=== PATIENT | male | born 1940 | race Caucasian/White ===

== ENCOUNTER 2016-10-26 16:42 | Inpatient (IN) | payer OTHER ==
[~2016-10-26] VITALS: Ht 170.2 cm; Wt 106.2 kg
[~2016-10-26 16:42] MED LIST: BIMA2.5D EACHEYE; CARV12.52 PO; CLOP75TA PO; HYDR-2868 PO; HYDR25TA9 PO; INSU100V13 SQ; LIPITOR80 MG PO; LISI-334 PO
[2016-10-26 17:06] LABS: BASO # 0.1 x10^3/uL (0.0-0.2); BASO % 1 % (0-3); EOS % 2 % (0-3); HEMATOCRIT 47.3 % (39.0-53.0); HEMOGLOBIN 15.5 g/dL (13.0-17.5); LYMPH # 3.8 x10^3/uL (1.0-4.8); LYMPH % 28 % (24-48); MEAN CORPUSCULAR HEMOGLOBIN 26 pg (25-35); MEAN CORPUSCULAR HGB CONC 33 g/dL (31-37); MEAN CORPUSCULAR VOLUME 81 fL (79-100); MONO % 7 % (0-9); NEUT % 62 % (31-73); PLATELET COUNT 310 x10^3/uL (140-400); RED BLOOD COUNT 5.86 x10^6/uL (4.30-5.70); RED CELL DISTRIBUTION WIDTH 15.4 % (11.5-14.5); WHITE BLOOD COUNT 13.6 x10^3/uL (4.0-11.0)
[2016-10-26 17:16] LABS: PROTHROMBIN TIME PATIENT 12.5 SEC (11.7-14.0)
[2016-10-26 17:17] LABS: CALCIUM 9.6 mg/dL (8.5-10.1); GFR 72.6
--- NOTE | 2016-10-26 17:41 | RAD ---
PROCEDURE Head CT without contrast. HISTORY Right-sided weakness. Slurred speech. TECHNIQUE Computed tomographic images of the head were obtained without contrast. COMPARISON 10/14/2015 FINDINGS There is no acute hemorrhage. There is no mass effect or midline shift. There is mild to moderate ventricular enlargement, likely due to cerebral atrophy. There are scattered areas of hypodensity within the cerebral white matter, likely due to chronic small vessel disease. There are small left maxillary sinus mucous retention cysts. The orbits are unremarkable. The mastoid air cells are clear. There is no calvarial lesion. IMPRESSION 1. No acute intracranial finding. Note is made that MRI is more sensitive for acute infarction. 2. Scattered areas of hypodensity within the cerebral white matter, a nonspecific finding likely due to chronic small vessel disease. 3. Mild to moderate ventricular enlargement, appropriate for the degree of cerebral atrophy. This is not clearly greater than expected for cerebral volume to suggest normal pressure hydrocephalus. Electronically signed by: Danelle Aragon (Oct 26, 2016 17:39:57)
--- NOTE | 2016-10-26 17:55 | PHYS DOC ---
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 Daughter is primary immigration judge and lives with him. Noted he was not quite himself this morning around 0700, but did not have specific complaint; he did not eat breakfast per usual. At lunch around 1100, he seemed weaker on the right side than usual and needed more help than usual; he also did not eat well at lunch. She then slept this afternoon and woke around 1600, noting facial droop, slurred speech and worsening right sided weakness than usual. He has no complaints. He denies headache, vision changes, numbness, tingling, focal weakness, chest pain, dyspnea, palpations, abdominal pain, nausea or vomiting, fever or chills, dysuria, diarrhea. He denies difficulty breathing or swallowing. Review of Systems Review of Systems Constitutional: Denies fever or chills [] Eyes: Denies change in visual acuity, redness, or eye pain [] HENT: Denies nasal congestion or sore throat [] Respiratory: Denies cough or shortness of breath [] Cardiovascular: No additional information not addressed in HPI [] GI: Denies abdominal pain, nausea, vomiting, bloody stools or diarrhea [] : Denies dysuria or hematuria [] Musculoskeletal: Denies back pain or joint pain [] Integument: Denies rash or skin lesions [] Neurologic: Denies headache, focal weakness or sensory changes [] Endocrine: Denies polyuria or polydipsia [] Allergies Allergies Allergies Coded Allergies Type Severity Reaction Last Updated Verified Lbfxwjl-Ntj-Zlc Reductase Inhibitor Allergy Intermediate Hives 04/28/16 Yes Physical Exam Physical Exam Constitutional: Well developed, well nourished, no acute distress, non-toxic appearance. [] HENT: Normocephalic, atraumatic, bilateral external ears normal, oropharynx moist, no oral exudates, nose normal. [] Eyes: PERRLA, EOMI. [] Neck: Normal range of motion, supple, no stridor. [] Cardiovascular:Heart rate regular rhythm [] Lungs & Thorax: Bilateral breath sounds clear to auscultation [] Abdomen: Bowel sounds normal, soft, no tenderness. [] Skin: Warm, dry, no erythema, no rash. [] Back: Normal range of motion. [] Extremities: No tenderness, ROM intact. [] Neurologic: Alert and oriented to self and situation, normal motor function, normal sensory function, has right upper and lower extremity drift, has 5-/5 strength in right upper and lower extremity compared to left, has right facial droop however other cranial nerves are intact, no nystagmus. [] Psychologic: Affect normal, judgement normal, mood normal. [] Current Patient Data Vital Signs Vital Signs Date Time Temp Pulse Resp B/P Pulse Ox O2 Delivery O2 Flow Rate FiO2 10/26/16 17:48 71 21 167/76 Room Air 10/26/16 17:15 91 10/26/16 16:52 98.0 98.0 Lab Values Laboratory Tests Test 10/26/16 16:57 10/26/16 17:00 Glucose (Fingerstick) 127mg/dL (70-99) H White Blood Count 13.6x10^3/uL (4.0-11.0) H Red Blood Count 5.86x10^6/uL (4.30-5.70) H Hemoglobin 15.5g/dL (13.0-17.5) Hematocrit 47.3% (39.0-53.0) Mean Corpuscular Volume 81fL (79-100) Mean Corpuscular Hemoglobin 26pg (25-35) Mean Corpuscular Hemoglobin Concent 33g/dL (31-37) Red Cell Distribution Width 15.4% (11.5-14.5) H Platelet Count 310x10^3/uL (140-400) Neutrophils (%) (Auto) 62% (31-73) Lymphocytes (%) (Auto) 28% (24-48) Monocytes (%) (Auto) 7% (0-9) Eosinophils (%) (Auto) 2% (0-3) Basophils (%) (Auto) 1% (0-3) Neutrophils # (Auto) 8.4x10^3uL (1.8-7.7) H Lymphocytes # (Auto) 3.8x10^3/uL (1.0-4.8) Monocytes # (Auto) 0.9x10^3/uL (0.0-1.1) Eosinophils # (Auto) 0.3x10^3/uL (0.0-0.7) Basophils # (Auto) 0.1x10^3/uL (0.0-0.2) Prothrombin Time 12.5SEC (11.7-14.0) Prothrombin Time INR 1.0 (0.8-1.1) Sodium Level 140mmol/L (136-145) Potassium Level 4.0mmol/L (3.5-5.1) Chloride Level 101mmol/L (98-107) Carbon Dioxide Level 27mmol/L (21-32) Anion Gap 12 (6-14) Blood Urea Nitrogen 22mg/dL (8-26) Creatinine 1.0mg/dL (0.7-1.3) Estimated GFR (Cockcroft-Gault) 72.6 Glucose Level 132mg/dL (70-99) H Calcium Level 9.6mg/dL (8.5-10.1) Troponin I Quantitative 0.036ng/mL (0.000-0.055) Laboratory Tests 10/26/16 17:00 Laboratory Tests 10/26/16 17:00 EKG EKG EKG as interpreted by me as normal sinus rhythm, rate 83, no ST-T changes, normal intervals, no ectopy Radiology/Procedures Radiology/Procedures CT head without contrast IMPRESSION 1. No acute intracranial finding. Note is made that MRI is more sensitive for acute infarction. 2. Scattered areas of hypodensity within the cerebral white matter, a nonspecific finding likely due to chronic small vessel disease. 3. Mild to moderate ventricular enlargement, appropriate for the degree of cerebral atrophy. This is not clearly greater than expected for cerebral volume to suggest normal pressure hydrocephalus. Electronically signed by: Danelle Aragon (Oct 26, 2016 17:39:57) Course & Med Decision Making Course & Med Decision Making Pertinent Labs and Imaging studies reviewed. (See chart for details) NIH 7 (as documented in nursing notes). Given delayed presentation, he is not a candidate for thrombolysis. Will admit for concern of acute ischemic stroke. Discussed case with Dr. Hoyt, who will admit. Jonel Disclaimer Dragon Disclaimer This electronic medical record was generated, in whole or in part, using a voice recognition dictation system. Departure Departure Impression: Primary Impression: Right sided weakness Disposition: 09 ADMITTED INPATIENT Condition: STABLE Referrals: IMTIAZ GOMEZ MD (PCP) Cathi CISNEROS MD Oct 26, 2016 17:55
[2016-10-26] MEDS ORDERED: ONDANSETRON PF 4 MG/2 ML VIAL. IV PRN ×2 (18:00→19:02)
[2016-10-26] MEDS ORDERED: ACETAMINOPHEN 325 MG TABLET. PO PRN (18:00)
[2016-10-26] MEDS ORDERED: FENTANYL PF 100 MCG/2 ML VIAL. IV PRN (18:00)
[2016-10-26] MEDS ORDERED: ASPIRIN 325 MG TABLET PO ONE (18:00)
--- NOTE | 2016-10-26 18:43 | EKG ---
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
--- NOTE | 2016-10-26 19:00 | ACF ---
Admission Forms Criteria NEUROLOGY GRG Clinical Indications for Admission to Inpatient Care (Place ' X' for any and all applicable criteria): Hospital admission is needed for appropriate care of the patient because of 1 or more of the following: [ ]I. Encephalitis [ ]II. Severe [employer] infections indicated by 1 or more of the following(1)(2)(3) : [ ]a) Intracranial abscess [ ]b) Spinal abscess or myelitis [ ]c) Tuberculous or other nonbacterial, nonviral [employer] infection(8) [ ]III. Vasculitis and 1 or more of the following(14)(15): []a) Altered mental status that is severe or persistent or other acute neurologic change []b) Psychosis []c) Seizure [ ]IV. Status epilepticus or repetitive seizures not controlled with emergent treatment [A] (7)(8) [ ]V. Altered mental status that is severe or persistent [ ]. Transient alteration in consciousness with high-risk etiology; examples include (12)(13): [ ]a) Cardiovascular source [ ]b) Cataplexy [ ]VII. Cerebral aneurysm requiring ANY ONE of the following(14): [ ]a) IV antihypertensives or vasoactive agents [ ]b) Sedation and analgesia for suspected leak [ ]c) Need for external ventricular drainage and cerebral perfusion pressure monitoring [ ]d) Emergent evaluation to determine need for surgical clipping or endovascular coiling by interventional radiology. If surgery is required ( Also use Craniotomy, Supratentorial, for Surgery of Bleeding Intracranial Aneurysm (for bleeding aneurysm) or Craniotomy, Supratentorial (for nonbleeding aneurysm) as appropriate. [X]VIII. New-onset severe neurologic symptom requiring inpatient care indicated by ANY ONE of the following: [ ]a) Aphasia(15) [ ]b) Weakness (grade 3 or less) [ ]c) Paralysis (eg, hemiplegia) [ ]d) Spasticity(16) [ ]e) Dystonia [ ]e) Ataxia(17) [ ]f) Amnesia(18) [ ]g) Involuntary movements(19) [ ]h) Vertigo [ ] Visual loss [X]i) Other severe neurologic finding (eg, papilledema, mass effect on imaging, myoclonus not treatable at alternative level of care (eg, observation care) [ ]IX. Guillain-Richmond syndrome(20) [ ]X. Myasthenia gravis crisis or inpatient monitoring need as indicated by 1 or more of the following(21): [ ]a) Intensive treatment (eg, course of plasmapheresis) with inadequate outpatient situation to monitor patients status [ ]b) Inadequate airway protection [ ]c) Respiratory insufficiency requiring intubation or inpatient. monitoring [ ]d) Progressive dysphagia with failure to thrive [ ]XI. Multiple sclerosis or other acute demyelinating disease requiring inpatient care as indicated by 1 or more of the following (22)(23): [ ]a) Acute severe deterioration requiring inpatient treatment (eg, IV steroids, plasmapheresis, close observation) [ ]b) Acute complication requiring inpatient care (eg, sepsis, severe decubitus, aspiration) [ ]XII.Parkinson disease requiring inpatient care (Also use Optimal Recovery Care Criteria or General Recovery Criteria as appropriate) indicated by 1 or more of the following(25): [ ]a) Infection (eg, aspiration pneumonia) not treatable at alternative level of care [ ]b Dehydration that is severe or persistent [ ]c) Life-threatening agitation or psychotic behavior not treatable on emergency, observation care, or alternative level (eg, residential) basis [ ]d) Severe medication withdrawal effects (eg, freezing, neuroleptic malignant syndrome) not responsive to emergency and observation care treatment ( as appropriate) [ ]e) Other severe manifestation not treatable at alternative level of care [ ]XII. Amyotrophic lateral sclerosis with inpatient care needs as indicated by ANY ONE of the following(26): [ ]a) Acute complications (eg, aspiration pneumonia, sepsis ) requiring inpatient care ( see other optimal Recovery Guideline as appropriate) [ ]b) Dehydration that is severe persistent AND artificial support desired [ ]c) Inadequate airway protection AND artificial support desired [ ]d) Severe ventilatory insufficiency AND artificial support desired [ ]XIII. Myasthenia gravis crisis or inpatient monitoring need as indicated by 1 or more of the following(21): [] a) Inadequate airway protection []b) Respiratory insufficiency requiring intubation or inpatient monitoring []c) Progressive dysphagia with failure to thrive []d) Intensive treatment (e.g., course of plasmapheresis) with inadequate outpatient situation to monitor patients status [ ]XIV. Multiple sclerosis or other acute demyelinating disease requiring inpatient care indicated by 1 or more of the following[C](36)(43)(44)(45)(46): []a) Acute severe deterioration requiring inpatient treatment (eg, IV steroids, plasmapheresis, close observation) []b) Acute complication requiring inpatient care (eg, sepsis, severe decubitus, aspiration) [ ]XV. Intracranial hypertension (e.g., pseudotumor cerebri) requiring inpatient care (e.g., acute visual loss, inadequate oral intake) (47)(48)(49) [ ]XVI. Parkinson disease requiring inpatient care (Also use Optimal Recovery Care Criteria or General Recovery Criteria as appropriate) indicated by 1 or more of the following(25): [] a) Infection (e.g., aspiration pneumonia) not treatable at alternative level of care []b) Volume depletion not responsive to emergency and observation care treatment (as appropriate) []c) Life-threatening agitation or psychotic behavior not treatable on emergency, observation care, or alternative level (e.g., residential) basis []d) Severe medication withdrawal effects (e.g., freezing, neuroleptic malignant syndrome) not responsive to emergency and observation care treatment (as appropriate) []e) Other severe manifestation not treatable at alternative level of care [ ]XVII. Amyotrophic lateral sclerosis with inpatient care needs as indicated by1 or more of the following(42): []a) Acute complications (eg, aspiration pneumonia, sepsis) requiring inpatient care (see other Optimal Recovery Guideline or General Recovery Guideline as appropriate) []b) Dehydration that is severe or persistent AND artificial support desired []c) Inadequate airway protection AND artificial support desired []d) Severe ventilatory insufficiency AND artificial support desired [ ]XVIII. Severe myopathy, neuropathy, or other neuromuscular disease indicated by 1 or more of the following(42)(52)(53)(54): []a ) New-onset severe diffuse weakness (eg, strength 3/5 or less) []b) Severe dysphagia []c) Dyspnea at rest or with minimal exertion (new) []d) Inadequate airway protection []e) Inadequate ventilation indicated by 1 or more of the following : i) Partial pressure of carbon dioxide greater than 44 mm Hg ( 5.9 kPa) (new) ii) Reduced peak expiratory flow rate (new) iii) Vital capacity less than 50% of predicted (less than 15 mL/kg) iv) Peak inspiratory force less negative than -30 cm H2O (- 2942 Pa) [ ]XVII.Complications of congenital or degenerative disease (eg, infection, seizures, dehydration, injury) not responsive to emergency and observation care treatment (as appropriate ) [C](16)(29)(30) [ ]XVIII.Suspected or confirmed nerve or muscle toxic injury, including ANY ONE of the following: [ ]a) Rhabdomyolysis(31) i) Acute renal failure ii) Dehydration that is severe or persistent iii) Altered mental status that is severe or persistent iv) Electrolyte abnormality that remains after emergency or observation level care ( as appropriate) [ ]b) Botulism(32) [ ]c) Other severe toxin-induced sign or symptom [ ]XIX. Neurologic trauma requiring inpatient treatment (medical) indicated by ANY ONE of the following(33)(34): [ ]a) Vital signs or neurologic signs more frequently than every 4 hours [ ]b) Hyperosmolar therapy [ ]c) Respiratory monitoring [ ]d) Intracranial pressure monitoring and treatment [ ]e) Stabilization and immobilization device placement (eg, braces, body jacket) [ ]f) Intubation & mechanical ventilation for airway protection or therapeutic hyperventilation [ ]g) Other treatment or monitoring needed that requires inpatient level of care [ ]XX.Complications of neurologic devices (eg, ventricular shunt, neurostimulator) requiring 1 or more of the following(35)(36): [ ]a) IV antibiotics with monitoring while awaiting culture results [ ]b) Monitoring for hydrocephalus [ ]XXI. Neurology condition symptom, or finding for which emergency and observation care have failed or are not considered appropriate. See General Criteria: Observation Care ISC, General Admission Criteria GRG, or Pediatric General Admission Criteria GRG guideline as appropriate. The original [facility] content created by [facility] has been revised. The portions of the content which have been revised are identified through the use of italic text or in bold, and [facility] has neither reviewed nor approved the modified material. All other unmodified content is copyright [facility] Please see references footnoted in the original [facility] edition 2016 Admission Criteria Met?: Yes KELLEN ROSS Oct 26, 2016 19:00
--- NOTE | 2016-10-26 19:12 | PDOC1 ---
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 (RUE weaker than RLE). By 4pm, slurred speech and facial asymmetry, He does have hx of CVA with R sided residual deficit but these acute events were worse than his baseline. Maintained on plavix, Also hx HTN, BP tends to run high, dtr mentions hx malignant HTN, on a couple of antihypertensives at home (See mAR). BP running 140s-160s at ER,. Slurred speech, shallow R NLF, weak RUE (usually able to lift above head but not today), USes assistive device, wheelchair at home. Got ASA at ER, CT head neg Past Medical History Cardiovascular: HTN CENTRAL NERVOUS SYSTEM: CVA Heme/Onc: Cancer Endocrine: Diabetes Past Surgical History Past Surgical History: Appendectomy Family History Family History: Cancer, Heart Disease Social History Smoke: No ALCOHOL: none Drugs: None Current Problem List Problem List Problems Medical Problems: (1) Right sided weakness Status: Acute Problems: Current Medications Current Medications Current Medications Ondansetron HCl (Zofran) 4 mg PRN Q8HRS PRN IV NAUSEA/VOMITING; Start 10/26/16 at 18:00; Stop 10/27/16 at 17:59 Fentanyl Citrate (Fentanyl 2ml Vial) 50 mcg PRN Q2HR PRN IV PAIN; Start at 18:00; Stop 10/27/16 at 17:59 Acetaminophen (Tylenol) 650 mg PRN Q4HRS PRN PO FEVER; Start 10/26/16 at 18:00 ; Stop 10/27/16 at 17:59 Aspirin (Smitha Aspirin) 325 mg 1X ONCE PO ; Start 10/26/16 at 18:00; Stop 10/26 at 18:02; Status DC Active Scripts Active Reported Lumigan (Bimatoprost) 2.5 Ml Drops 1 Drop EACHEYE QHS Levemir (Insulin Detemir) 100 Unit/1 Ml Vial 1 Unit SQ Lipitor (Atorvastatin Calcium) 80 Mg Tablet 100 Mg PO HS Hydralazine Hcl 25 Mg Tablet 1 Tab PO TID Lisinopril 20 Mg Tablet 1 Tab PO DAILY Clopidogrel (Clopidogrel Bisulfate) 75 Mg Tablet 1 Tab PO DAILY Hydrochlorothiazide Tablet (Hydrochlorothiazide) 25 Mg Tablet 1 Tab PO DAILY Carvedilol 12.5 Mg Tablet 1 Tab PO BID Allergies Allergies: Coded Allergies: Hqdnmoo-Inl-Bhy Reductase Inhibitor (Verified Allergy, Intermediate, Hives , 04/28/16) ROS Review of System per HPI, all else is neg 14 pt systems reviewed General: No: Appetite, Chills, Fatigue, Malaise, Night Sweats, Other PSYCHOLOGICAL ROS: No: Anxiety, Behavioral Disorder, Concentration difficultie , Decreased libido, Depression, Disorientation, Hallucinations, Hostility, Irritablity, Memory difficulties, Mood Swings, Obsessive thoughts, Other, Physical abuse, Sexual abuse, Sleep disturbances, Suicidal ideation Eyes: No Blurry vision, No Decreased vision, No Double vision, No Dry eyes, No Excessive tearing, No Eye Pain, No Itchy Eyes, No Loss of vision, No Other, No Photophobia, No Scotomata, No Uses contacts, No Uses glasses HEENT: No: Epistaxis, Heacaches, Hearing change, Nasal congestion, Nasal discharge, Oral lesions, Other, Sinus pain, Sneezing, Snoring, Sore Throat, Tinnitus, Vertigo, Visual Changes, Vocal changes ALLERGY AND IMMUNOLOGY: No: Hives, Insect Bite Sensitivity, Itchy/Watery Eyes, Nasal Congestion, Other, Post Nasal Drip, Seasonal Allergies Hematological and Lymphatic: No: Bleeding Problems, Blood Clots, Blood Transfusions, Brusing, Night Sweats, Other, Pallor, Swollen Lymph Nodes ENDOCRINE: No: Breast Changes, Galactorrhea, Hair Pattern Changes, Hot Flashes , Malaise/lethargy, Mood Swings, Other, Palpitations, Polydipsia/polyuria, Skin Changes, Temperature Intolerance, Unexpected Weight Changes Breast: No New/Changing Breast Lumps, No Nipple changes, No Nipple discharge, No Other Respiratory: No: Cough, Hemoptysis, Orthopnea, Other, Pleuritic Pain, SOB with excertion, Shortness of breath, Sputum Changes, Stridor, Tachypnea, Wheezing Cardiovascular: No Chest Pain, No Edema, No Lt Headedness, No Orthopnea, No Other, No Palpitations, No Paroxysmal Noc. Dyspnea Gastrointestinal: No Abdominal Pain, No Constipation, No Diarrhea, No Hematochezia, No Melena, No Nausea, No Other, No Vomiting Genitourinary: No , No , No , No , No , No , No , No Discharge, No Dysuria, No Flank Pain, No Frequency, No Hematuria, No Incontinence, No Other, No Pain, No Retention, No Urgency Musculoskeletal: No Gait Disturbance, No Joint Pain, No Joint Stiffness, No Joint Swelling, No Muscle Pain, No Muscular Weakness, No Other, No Pain In:, No Swelling In: Neurological: Yes Other (per HPI) Skin: No Acne, No Dry Skin, No Eczema, No Hair Changes, No Lumps, No Mole Changes, No Mottling, No Nail Changes, No Other, No Pruritus, No Rash, No Skin Lesion Changes Vitals Vitals Vital Signs Date Time Temp Pulse Resp B/P Pulse Ox O2 Delivery O2 Flow Rate FiO2 10/26/16 16:52 98.0 87 18 165/115 95 Room Air 98.0 Labs Labs Laboratory Tests Test 10/26/16 16:57 10/26/16 17:00 Glucose (Fingerstick) 127mg/dL (70-99) White Blood Count 13.6x10^3/uL (4.0-11.0) Red Blood Count 5.86x10^6/uL (4.30-5.70) Hemoglobin 15.5g/dL (13.0-17.5) Hematocrit 47.3% (39.0-53.0) Mean Corpuscular Volume 81fL (79-100) Mean Corpuscular Hemoglobin 26pg (25-35) Mean Corpuscular Hemoglobin Concent 33g/dL (31-37) Red Cell Distribution Width 15.4% (11.5-14.5) Platelet Count 310x10^3/uL (140-400) Neutrophils (%) (Auto) 62% (31-73) Lymphocytes (%) (Auto) 28% (24-48) Monocytes (%) (Auto) 7% (0-9) Eosinophils (%) (Auto) 2% (0-3) Basophils (%) (Auto) 1% (0-3) Neutrophils # (Auto) 8.4x10^3uL (1.8-7.7) Lymphocytes # (Auto) 3.8x10^3/uL (1.0-4.8) Monocytes # (Auto) 0.9x10^3/uL (0.0-1.1) Eosinophils # (Auto) 0.3x10^3/uL (0.0-0.7) Basophils # (Auto) 0.1x10^3/uL (0.0-0.2) Prothrombin Time 12.5SEC (11.7-14.0) Prothromb Time International Ratio 1.0 (0.8-1.1) Sodium Level 140mmol/L (136-145) Potassium Level 4.0mmol/L (3.5-5.1) Chloride Level 101mmol/L (98-107) Carbon Dioxide Level 27mmol/L (21-32) Anion Gap 12 (6-14) Blood Urea Nitrogen 22mg/dL (8-26) Creatinine 1.0mg/dL (0.7-1.3) Estimated GFR (Cockcroft-Gault) 72.6 Glucose Level 132mg/dL (70-99) Calcium Level 9.6mg/dL (8.5-10.1) Troponin I Quantitative 0.036ng/mL (0.000-0.055) Laboratory Tests Test 10/26/16 16:57 10/26/16 17:00 Glucose (Fingerstick) 127mg/dL (70-99) White Blood Count 13.6x10^3/uL (4.0-11.0) Red Blood Count 5.86x10^6/uL (4.30-5.70) Hemoglobin 15.5g/dL (13.0-17.5) Hematocrit 47.3% (39.0-53.0) Mean Corpuscular Volume 81fL (79-100) Mean Corpuscular Hemoglobin 26pg (25-35) Mean Corpuscular Hemoglobin Concent 33g/dL (31-37) Red Cell Distribution Width 15.4% (11.5-14.5) Platelet Count 310x10^3/uL (140-400) Neutrophils (%) (Auto) 62% (31-73) Lymphocytes (%) (Auto) 28% (24-48) Monocytes (%) (Auto) 7% (0-9) Eosinophils (%) (Auto) 2% (0-3) Basophils (%) (Auto) 1% (0-3) Neutrophils # (Auto) 8.4x10^3uL (1.8-7.7) Lymphocytes # (Auto) 3.8x10^3/uL (1.0-4.8) Monocytes # (Auto) 0.9x10^3/uL (0.0-1.1) Eosinophils # (Auto) 0.3x10^3/uL (0.0-0.7) Basophils # (Auto) 0.1x10^3/uL (0.0-0.2) Prothrombin Time 12.5SEC (11.7-14.0) Prothromb Time International Ratio 1.0 (0.8-1.1) Sodium Level 140mmol/L (136-145) Potassium Level 4.0mmol/L (3.5-5.1) Chloride Level 101mmol/L (98-107) Carbon Dioxide Level 27mmol/L (21-32) Anion Gap 12 (6-14) Blood Urea Nitrogen 22mg/dL (8-26) Creatinine 1.0mg/dL (0.7-1.3) Estimated GFR (Cockcroft-Gault) 72.6 Glucose Level 132mg/dL (70-99) Calcium Level 9.6mg/dL (8.5-10.1) Troponin I Quantitative 0.036ng/mL (0.000-0.055) VTE Prophylaxis Ordered VTE Prophylaxis Devices: No VTE Pharmacological Prophylaxi: Yes Assessment/Plan Assessment/Plan 1. Shallow R NLF, weak RUE > RLE, r/o Acute ischemic stroke, JIMMY to MCA territory 2. MAlignant HTN POA, resolved 3. DM 2 on OHA 4. HTN on BB 5. Obesity/overweight 6. 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
[2016-10-26] MEDS ORDERED: DEXTROSE 50% 25 GM / 50ML DISP.SYRIN. IV PRN (19:15)
[2016-10-26] MEDS ORDERED: IV 1/2 NORMAL SALINE 1,000 ML IV ONE (19:15)
[2016-10-26 19:45] VITALS: BP 158/83
[2016-10-26] MEDS: CARVEDILOL 12.5 MG TABLET. PO SCH (20:00)
[2016-10-26] MEDS ORDERED: POTA10TA10 PO (20:01)
[2016-10-26] MEDS ORDERED: METF500T4 PO (20:01)
[2016-10-26] MEDS ORDERED: FURO20TA3 PO (20:01)
[2016-10-26] MEDS ORDERED: NICOTINE 21MG PATCH. TD PRN (20:15)
[2016-10-26] MEDS: LATANOPROST 0.005% OPHTH SOLUTION 2.5ML BOTTLE. OU SCH (20:52)
[2016-10-26] MEDS: HYDRALAZINE 25 MG TABLET PO SCH (21:00)
[2016-10-26 23:25] VITALS: BP 155/86
[2016-10-27 03:10] VITALS: BP 148/77
[2016-10-27 07:00] VITALS: BP 151/85
[2016-10-27 07:58] LABS: CHOLESTEROL/HDL RATIO 5.7
[2016-10-27] MEDS: INSULIN ASPART 300 UNITS/3 ML INSULN.PEN SQ SCH ×3 (08:00→17:00)
[2016-10-27] MEDS: CARVEDILOL 12.5 MG TABLET. PO SCH ×2 (08:00→17:00)
[2016-10-27] MEDS: CLOPIDOGREL BISULFATE 75 MG TABLET PO SCH (08:00)
[2016-10-27] MEDS: LISINOPRIL 20 MG TABLET PO SCH (09:00)
[2016-10-27] MEDS: HYDRALAZINE 25 MG TABLET PO SCH ×3 (09:00→21:00)
[2016-10-27] MEDS ORDERED: GUAIFENESIN/CODEINE 100mg/10mg 5 ML LIQUID. PO PRN (09:00)
[2016-10-27] MEDS: HYDROCHLOROTHIAZIDE 25 MG TABLET PO SCH (09:00)
--- NOTE | 2016-10-27 09:04 | PDOC ---
PROGRESS NOTES Chief Complaint Chief Complaint 1. Shallow R NLF, weak RUE > RLE, r/o Acute ischemic stroke, JIMMY to MCA territory 2. MAlignant HTN POA, resolved 3. DM 2 on OHA 4. HTN on BB 5. Obesity/overweight 6. Intolerance to statin 7. FAcial asymmetry 8. NAsal congestion/viral uri sxs History of Present Illness History of Present Illness Still slurred SHallow R NLFClaims feels fine Saliva drooling on left side PT has not worked with yet ASSOCIATE RESEARCH SCIENTIST has not seen yet NPO GEntle iVF running - hx CHF on lasix WHeezy, denies COPD, or smoking CLaims has been feeling congested lately PLAN: Await ASSOCIATE RESEARCH SCIENTIST, pT, OT, Neuro Start H2 antag once passes swallow Nebs QID Most likely will need rehab MRI brain ordered not yet done Vitals Vitals Vital Signs Date Time Temp Pulse Resp B/P Pulse Ox O2 Delivery O2 Flow Rate FiO2 10/27/16 07:00 97.6 68 18 151/85 96 Room Air 97.6 Physical Exam General: Alert, Oriented X3, Cooperative, No acute distress Heart: Regular rate Lungs: Clear, Wheezing Abdomen: Normal bowel sounds, No tenderness, No hepatosplenomegaly Extremities: No clubbing, No cyanosis, No edema Skin: No rashes, No breakdown Labs LABS Laboratory Tests Test 10/26/16 16:57 10/26/16 17:00 10/26/16 20:52 10/27/16 06:35 Glucose (Fingerstick) 127mg/dL (70-99) 139mg/dL (70-99) White Blood Count 13.6x10^3/uL (4.0-11.0) Red Blood Count 5.86x10^6/uL (4.30-5.70) Hemoglobin 15.5g/dL (13.0-17.5) Hematocrit 47.3% (39.0-53.0) Mean Corpuscular Volume 81fL (79-100) Mean Corpuscular Hemoglobin 26pg (25-35) Mean Corpuscular Hemoglobin Concent 33g/dL (31-37) Red Cell Distribution Width 15.4% (11.5-14.5) Platelet Count 310x10^3/uL (140-400) Neutrophils (%) (Auto) 62% (31-73) Lymphocytes (%) (Auto) 28% (24-48) Monocytes (%) (Auto) 7% (0-9) Eosinophils (%) (Auto) 2% (0-3) Basophils (%) (Auto) 1% (0-3) Neutrophils # (Auto) 8.4x10^3uL (1.8-7.7) Lymphocytes # (Auto) 3.8x10^3/uL (1.0-4.8) Monocytes # (Auto) 0.9x10^3/uL (0.0-1.1) Eosinophils # (Auto) 0.3x10^3/uL (0.0-0.7) Basophils # (Auto) 0.1x10^3/uL (0.0-0.2) Prothrombin Time 12.5SEC (11.7-14.0) Prothromb Time International Ratio 1.0 (0.8-1.1) Sodium Level 140mmol/L (136-145) Potassium Level 4.0mmol/L (3.5-5.1) Chloride Level 101mmol/L (98-107) Carbon Dioxide Level 27mmol/L (21-32) Anion Gap 12 (6-14) Blood Urea Nitrogen 22mg/dL (8-26) Creatinine 1.0mg/dL (0.7-1.3) Estimated GFR (Cockcroft-Gault) 72.6 Glucose Level 132mg/dL (70-99) Calcium Level 9.6mg/dL (8.5-10.1) Troponin I Quantitative 0.036ng/mL (0.000-0.055) Triglycerides Level 184mg/dL (0-150) Cholesterol Level 176mg/dL (0-200) LDL Cholesterol, Calculated 108mg/dL (0-100) VLDL Cholesterol, Calculated 37mg/dL (0-40) HDL Cholesterol 31mg/dL (40-60) Cholesterol/HDL Ratio 5.7 Test 10/27/16 07:28 Glucose (Fingerstick) 121mg/dL (70-99) Assessment and Plan Assessmemt and Plan MRI Neuro PT/OT ASSOCIATE RESEARCH SCIENTIST NPO for now IVf slow (hx CHF on lasix - dtr concerned of fluid overload) Resume plavix Check hgba1c and lipids SSI high dose Resume BB, Nima inhib and diuretic I did held off on statin given intolerance to its side effects as relayed by dtr Problems Medical Problems: (1) Right sided weakness Status: Acute Problems: Comment Review of Relevant I have reviewed the following items trena (where applicable) has been applied. Labs Laboratory Tests Test 10/26/16 16:57 10/26/16 17:00 10/26/16 20:52 10/27/16 06:35 Glucose (Fingerstick) 127mg/dL (70-99) 139mg/dL (70-99) White Blood Count 13.6x10^3/uL (4.0-11.0) Red Blood Count 5.86x10^6/uL (4.30-5.70) Hemoglobin 15.5g/dL (13.0-17.5) Hematocrit 47.3% (39.0-53.0) Mean Corpuscular Volume 81fL (79-100) Mean Corpuscular Hemoglobin 26pg (25-35) Mean Corpuscular Hemoglobin Concent 33g/dL (31-37) Red Cell Distribution Width 15.4% (11.5-14.5) Platelet Count 310x10^3/uL (140-400) Neutrophils (%) (Auto) 62% (31-73) Lymphocytes (%) (Auto) 28% (24-48) Monocytes (%) (Auto) 7% (0-9) Eosinophils (%) (Auto) 2% (0-3) Basophils (%) (Auto) 1% (0-3) Neutrophils # (Auto) 8.4x10^3uL (1.8-7.7) Lymphocytes # (Auto) 3.8x10^3/uL (1.0-4.8) Monocytes # (Auto) 0.9x10^3/uL (0.0-1.1) Eosinophils # (Auto) 0.3x10^3/uL (0.0-0.7) Basophils # (Auto) 0.1x10^3/uL (0.0-0.2) Prothrombin Time 12.5SEC (11.7-14.0) Prothromb Time International Ratio 1.0 (0.8-1.1) Sodium Level 140mmol/L (136-145) Potassium Level 4.0mmol/L (3.5-5.1) Chloride Level 101mmol/L (98-107) Carbon Dioxide Level 27mmol/L (21-32) Anion Gap 12 (6-14) Blood Urea Nitrogen 22mg/dL (8-26) Creatinine 1.0mg/dL (0.7-1.3) Estimated GFR (Cockcroft-Gault) 72.6 Glucose Level 132mg/dL (70-99) Calcium Level 9.6mg/dL (8.5-10.1) Troponin I Quantitative 0.036ng/mL (0.000-0.055) Triglycerides Level 184mg/dL (0-150) Cholesterol Level 176mg/dL (0-200) LDL Cholesterol, Calculated 108mg/dL (0-100) VLDL Cholesterol, Calculated 37mg/dL (0-40) HDL Cholesterol 31mg/dL (40-60) Cholesterol/HDL Ratio 5.7 Test 10/27/16 07:28 Glucose (Fingerstick) 121mg/dL (70-99) Laboratory Tests Test 10/26/16 16:57 10/26/16 17:00 10/26/16 20:52 10/27/16 06:35 Glucose (Fingerstick) 127mg/dL (70-99) 139mg/dL (70-99) White Blood Count 13.6x10^3/uL (4.0-11.0) Red Blood Count 5.86x10^6/uL (4.30-5.70) Hemoglobin 15.5g/dL (13.0-17.5) Hematocrit 47.3% (39.0-53.0) Mean Corpuscular Volume 81fL (79-100) Mean Corpuscular Hemoglobin 26pg (25-35) Mean Corpuscular Hemoglobin Concent 33g/dL (31-37) Red Cell Distribution Width 15.4% (11.5-14.5) Platelet Count 310x10^3/uL (140-400) Neutrophils (%) (Auto) 62% (31-73) Lymphocytes (%) (Auto) 28% (24-48) Monocytes (%) (Auto) 7% (0-9) Eosinophils (%) (Auto) 2% (0-3) Basophils (%) (Auto) 1% (0-3) Neutrophils # (Auto) 8.4x10^3uL (1.8-7.7) Lymphocytes # (Auto) 3.8x10^3/uL (1.0-4.8) Monocytes # (Auto) 0.9x10^3/uL (0.0-1.1) Eosinophils # (Auto) 0.3x10^3/uL (0.0-0.7) Basophils # (Auto) 0.1x10^3/uL (0.0-0.2) Prothrombin Time 12.5SEC (11.7-14.0) Prothromb Time International Ratio 1.0 (0.8-1.1) Sodium Level 140mmol/L (136-145) Potassium Level 4.0mmol/L (3.5-5.1) Chloride Level 101mmol/L (98-107) Carbon Dioxide Level 27mmol/L (21-32) Anion Gap 12 (6-14) Blood Urea Nitrogen 22mg/dL (8-26) Creatinine 1.0mg/dL (0.7-1.3) Estimated GFR (Cockcroft-Gault) 72.6 Glucose Level 132mg/dL (70-99) Calcium Level 9.6mg/dL (8.5-10.1) Troponin I Quantitative 0.036ng/mL (0.000-0.055) Triglycerides Level 184mg/dL (0-150) Cholesterol Level 176mg/dL (0-200) LDL Cholesterol, Calculated 108mg/dL (0-100) VLDL Cholesterol, Calculated 37mg/dL (0-40) HDL Cholesterol 31mg/dL (40-60) Cholesterol/HDL Ratio 5.7 Test 10/27/16 07:28 Glucose (Fingerstick) 121mg/dL (70-99) Medications Current Medications Ondansetron HCl (Zofran) 4 mg PRN Q8HRS PRN IV NAUSEA/VOMITING; Start 10/26/16 at 18:00; Stop 10/26/16 at 19:04; Status DC Fentanyl Citrate (Fentanyl 2ml Vial) 50 mcg PRN Q2HR PRN IV PAIN; Start at 18:00; Stop 10/27/16 at 17:59 Acetaminophen (Tylenol) 650 mg PRN Q4HRS PRN PO FEVER; Start 10/26/16 at 18:00 ; Stop 10/27/16 at 17:59 Aspirin (Smitha Aspirin) 325 mg 1X ONCE PO ; Start 10/26/16 at 18:00; Stop 10/26 at 18:02; Status DC Ondansetron HCl 4 mg 4 mg PRN Q6HRS PRN IV NAUSEA/VOMITING; Start 10/26/16 at 19:02 Sodium Chloride (Iv Sodium Chloride 0.45%) 1,000 ml @ 75 mls/hr 1X ONCE IV Last administered on 10/26/16 20:44; Start 10/26/16 at 19:15; Stop 10/27/16 at 08:34; Status DC Carvedilol (Coreg) 12.5 mg BIDWMEALS PO ; Start 10/26/16 at 20:00 Clopidogrel Bisulfate (Plavix) 75 mg DAILYWBKFT PO ; Start 10/27/16 at 08:00 Hydralazine HCl (Apresoline) 25 mg TID PO ; Start 10/26/16 at 21:00 Hydrochlorothiazide (Hydrodiuril) 25 mg DAILY PO ; Start 10/27/16 at 09:00 Lisinopril (Prinivil) 20 mg DAILY PO ; Start 10/27/16 at 09:00 Latanoprost (Xalatan) 1 drop QHS OU Last administered on 10/26/16 20:52; Start 10/26/16 at 21:00 Insulin Aspart (Novolog) 0-9 UNITS TIDWMEALS SQ ; Start 10/27/16 at 08:00 Dextrose (Dextrose 50%-Water Syringe) 12.5 gm PRN Q15MIN PRN IV SEE COMMENTS; Start 10/26/16 at 19:15 Nicotine (Nicoderm Cq 21mg) 1 patch PRN DAILY PRN TD SMOKING CESSATION Last administered on 10/26/16 20:45; Start 10/26/16 at 20:15 Active Scripts Active Reported Potassium Chloride 10 Meq Tablet.er 20 Meq PO DAILY Metformin Hcl 500 Mg Tablet 500 Mg PO BIDWMEALS Furosemide 20 Mg Tablet 20 Mg PO DAILY Lumigan (Bimatoprost) 2.5 Ml Drops 1 Drop EACHEYE QHS Levemir (Insulin Detemir) 100 Unit/1 Ml Vial 1 Unit SQ Lipitor (Atorvastatin Calcium) 80 Mg Tablet 100 Mg PO HS Hydralazine Hcl 25 Mg Tablet 1 Tab PO TID Lisinopril 20 Mg Tablet 1 Tab PO DAILY Clopidogrel (Clopidogrel Bisulfate) 75 Mg Tablet 1 Tab PO DAILY Hydrochlorothiazide Tablet (Hydrochlorothiazide) 25 Mg Tablet 1 Tab PO DAILY Carvedilol 12.5 Mg Tablet 1 Tab PO BID Vitals/I & O Vital Sign - Last 24 Hours 10/26/16 10/26/16 10/26/16 10/26/16 16:52 17:15 17:33 17:48 Temp 98.0 98.0 Pulse 87 78 75 71 Resp 18 21 B/P 165/115 199/91 181/84 167/76 Pulse Ox 95 91 O2 Delivery Room Air Room Air Room Air 10/26/16 10/26/16 10/26/16 10/26/16 18:03 18:18 18:33 18:48 Pulse 76 72 73 72 Resp B/P 164/72 165/80 164/86 163/83 Pulse Ox 91 92 91 93 O2 Delivery Room Air Room Air Room Air Room Air 10/26/16 10/26/16 10/26/16 10/26/16 19:03 19:45 20:00 23:25 Temp 97.7 98.2 97.7 98.2 Pulse 74 73 73 Resp 24 B/P 169/83 158/83 155/86 Pulse Ox 93 94 91 O2 Delivery Room Air Room Air Room Air Room Air 10/27/16 10/27/16 03:10 07:00 Temp 97.5 97.6 97.5 97.6 Pulse 68 68 Resp 18 B/P 148/77 151/85 Pulse Ox 94 96 O2 Delivery Room Air Room Air Intake and Output 10/26/16 10/26/16 10/27/16 15:00 23:00 07:00 Intake Total 0 ml Output Total 600 ml Balance -600 ml KATELYN BOSS MD Oct 27, 2016 09:04
[2016-10-27] MEDS ORDERED: ACETAMINOPHEN 325 MG TABLET. PO PRN (09:15)
[2016-10-27] MEDS ORDERED: ONDANSETRON PF 4 MG/2 ML VIAL. IV PRN (09:15)
[2016-10-27] MEDS ORDERED: ACETAMINOPHEN 650 MG SUPP.RECT. PR PRN (09:15)
[2016-10-27] MEDS: ASPIRIN 300 MG SUPP.RECT PR SCH ×2 (09:15→11:57)
[2016-10-27] MEDS: CETIRIZINE HCL 10 MG TABLET. PO SCH (10:00)
[2016-10-27 11:00] VITALS: BP 158/74
--- NOTE | 2016-10-27 11:33 | RAD ---
Carotid ultrasound, 10/27/2016: History: Stroke Duplex evaluation of the carotid arteries in the neck was performed including grayscale, color-flow and spectral Doppler analysis. There is moderate atherosclerotic plaquing at the carotid bifurcations including the distal right common carotid artery. There is a mild velocity acceleration in the distal right common carotid artery in an area of smooth plaquing. The peak systolic velocity is 157 cm/s. The end-diastolic velocity is 20 cm/s. Correlation with the color images suggests approximately 50% diameter narrowing. The peak systolic velocity in the right internal carotid artery is 118 cm/s with an end-diastolic velocity of 24 cm/s. There is no duplex evidence of high-grade stenosis at the right carotid bifurcation. On the left, there is a moderate velocity acceleration in in the proximal internal carotid artery up to 191 cm/s. The end-diastolic velocity is 44 cm/s. The internal carotid to common carotid artery ratio is 2.1. The Doppler findings suggest narrowing in the 50-70% diameter range. Antegrade flow is present in both vertebral arteries in the neck. IMPRESSION: 1. Moderate atherosclerotic plaquing at the left carotid bifurcation with narrowing of the proximal internal carotid artery in the 50-70% diameter range. 2. Approximately 50% narrowing of the distal right common carotid artery due to smooth plaquing. 3. Mild to moderate atherosclerotic plaquing at the right carotid bifurcation with luminal narrowing in the 0-50% diameter range. Note: Stenosis calculations for CT, MRA and conventional angiography are based upon determination of the distal ICA diameter in accordance with the NASCET methodology. Stenosis calculations for Doppler studies are derived from validated velocity criteria which are known to correlate with NASCET methodology of determining stenosis.
[2016-10-27] MEDS: IV 1/2 NORMAL SALINE 1,000 ML IV SCH (11:55)
--- NOTE | 2016-10-27 11:55 | PDOC2 ---
NEUROLOGY CONSULT Date of Admission Date of Admission DATE: 10/27/16 TIME: 11:46 Reason for Consult Reason for Consult: Stroke Referring Physician Referring Physician: Dr. Hoyt PCP: Dr. Barcenas Source Source: Caregiver, Chart review, Patient History of Present Illness History of Present Illness The patient is a 76-year-old right-handed male with history of stroke causing right hemiparesis. At baseline his family has to get him out of bed but he does feed himself despite the residual right hemiparesis. His daughter is a nurse who works the radiation control specialist. She noticed that he had a bit of weakness yesterday about 11 AM and when she woke up from a nap at 4 PM, his weakness was worse and he was having more dysarthria. He was brought into the emergency department. I was not contacted, but the decision was made not to give tissue plasminogen activator, I gather, because of the more than 4 1/2 hours since last known normal. The patient denies the headache, diplopia, or vision loss. Past Medical History Cardiovascular: HTN CENTRAL NERVOUS SYSTEM: CVA Renal/: Prostate Ca. Endocrine: Diabetes Past Surgical History Past Surgical History: Appendectomy Family History Family History: No pertinent hx Social History Social History , lives with daughter and son-in-law, no alcohol or tobacco Current Medications Current Medications Current Medications Ondansetron HCl (Zofran) 4 mg PRN Q8HRS PRN IV NAUSEA/VOMITING; Start 10/26/16 at 18:00; Stop 10/26/16 at 19:04; Status DC Fentanyl Citrate (Fentanyl 2ml Vial) 50 mcg PRN Q2HR PRN IV PAIN; Start at 18:00; Stop 10/27/16 at 17:59 Acetaminophen (Tylenol) 650 mg PRN Q4HRS PRN PO FEVER; Start 10/26/16 at 18:00 ; Stop 10/27/16 at 17:59 Aspirin (Smitha Aspirin) 325 mg 1X ONCE PO ; Start 10/26/16 at 18:00; Stop 10/26 at 18:02; Status DC Ondansetron HCl 4 mg 4 mg PRN Q6HRS PRN IV NAUSEA/VOMITING; Start 10/26/16 at 19:02 Sodium Chloride (Iv Sodium Chloride 0.45%) 1,000 ml @ 75 mls/hr 1X ONCE IV Last administered on 10/26/16 20:44; Start 10/26/16 at 19:15; Stop 10/27/16 at 08:34; Status DC Carvedilol (Coreg) 12.5 mg BIDWMEALS PO ; Start 10/26/16 at 20:00 Clopidogrel Bisulfate (Plavix) 75 mg DAILYWBKFT PO ; Start 10/27/16 at 08:00 Hydralazine HCl (Apresoline) 25 mg TID PO ; Start 10/26/16 at 21:00 Hydrochlorothiazide (Hydrodiuril) 25 mg DAILY PO ; Start 10/27/16 at 09:00 Lisinopril (Prinivil) 20 mg DAILY PO ; Start 10/27/16 at 09:00 Latanoprost (Xalatan) 1 drop QHS OU Last administered on 10/26/16 20:52; Start 10/26/16 at 21:00 Insulin Aspart (Novolog) 0-9 UNITS TIDWMEALS SQ ; Start 10/27/16 at 08:00 Dextrose (Dextrose 50%-Water Syringe) 12.5 gm PRN Q15MIN PRN IV SEE COMMENTS; Start 10/26/16 at 19:15 Nicotine (Nicoderm Cq 21mg) 1 patch PRN DAILY PRN TD SMOKING CESSATION Last administered on 10/26/16 20:45; Start 10/26/16 at 20:15 Cetirizine HCl (Zyrtec) 10 mg DAILY PO ; Start 10/27/16 at 10:00 Albuterol/ Ipratropium (Duoneb) 3 ml RTQID NEB ; Start 10/27/16 at 09:30 Guaifenesin/ Codeine Phosphate (Robitussin Ac) 5 ml PRN Q6HRS PRN PO COUGH; Start 10/27/16 at 09:00 Acetaminophen (Tylenol) 650 mg PRN Q6HRS PRN PO FEVER; Start 10/27/16 at 09:15 Acetaminophen (Acetaminophen Supp) 650 mg PRN Q6HRS PRN VA FEVER; Start at 09:15 Ondansetron HCl (Zofran) 4 mg PRN Q6HRS PRN IV NAUSEA/VOMITING; Start 10/27/16 at 09:15 Aspirin (Aspirin) 300 mg DAILY VA ; Start 10/27/16 at 09:15 Active Scripts Active Reported Potassium Chloride 10 Meq Tablet.er 20 Meq PO DAILY Metformin Hcl 500 Mg Tablet 500 Mg PO BIDWMEALS Furosemide 20 Mg Tablet 20 Mg PO DAILY Lumigan (Bimatoprost) 2.5 Ml Drops 1 Drop EACHEYE QHS Levemir (Insulin Detemir) 100 Unit/1 Ml Vial 1 Unit SQ Lipitor (Atorvastatin Calcium) 80 Mg Tablet 100 Mg PO HS Hydralazine Hcl 25 Mg Tablet 1 Tab PO TID Lisinopril 20 Mg Tablet 1 Tab PO DAILY Clopidogrel (Clopidogrel Bisulfate) 75 Mg Tablet 1 Tab PO DAILY Hydrochlorothiazide Tablet (Hydrochlorothiazide) 25 Mg Tablet 1 Tab PO DAILY Carvedilol 12.5 Mg Tablet 1 Tab PO BID Allergies Allergies: Coded Allergies: Bhbfhti-Pos-Vtd Reductase Inhibitor (Verified Allergy, Intermediate, Hives , 04/28/16) ROS Review of System Negative for fevers, chills, weight loss, shortness of breath, chest pain, indigestion, hematochezia, melena, dysuria. Full 14-point review systems is negative. Physical Exam Physical Examination PHYSICAL EXAMINATION: Vital signs: see above. General appearance is normal and in no acute distress. HEENT: Normocephalic and nontraumatic. Eyes, nose, ears, and throat are unremarkable. Neck is supple. No lymphadenopathy. No bruits are heard over the carotid artery. No crepitus. NEUROLOGIC: He is alert, can tell me his name, knows that he is in the hospital in [place], but does not know the precise name and he does not know the date. Cranial nerve examination reveals full visual [place] to threat, equally reactive pupils , and intact [place] moments. There is a right central facial weakness. Reflexes are one plus with silent plant responses. He has 3/5 right hemiparesis , 4/5 strength on the left. He does not cooperate with cerebellar testing. He responds to pinprick in all 4 extremities. Vitals VITALS Vital Signs Date Time Temp Pulse Resp B/P Pulse Ox O2 Delivery O2 Flow Rate FiO2 10/27/16 11:00 96.5 70 18 158/74 94 Room Air 96.5 Labs Labs Laboratory Tests Test 10/26/16 16:57 10/26/16 17:00 10/26/16 20:52 10/27/16 06:35 Glucose (Fingerstick) 127mg/dL (70-99) 139mg/dL (70-99) White Blood Count 13.6x10^3/uL (4.0-11.0) Red Blood Count 5.86x10^6/uL (4.30-5.70) Hemoglobin 15.5g/dL (13.0-17.5) Hematocrit 47.3% (39.0-53.0) Mean Corpuscular Volume 81fL (79-100) Mean Corpuscular Hemoglobin 26pg (25-35) Mean Corpuscular Hemoglobin Concent 33g/dL (31-37) Red Cell Distribution Width 15.4% (11.5-14.5) Platelet Count 310x10^3/uL (140-400) Neutrophils (%) (Auto) 62% (31-73) Lymphocytes (%) (Auto) 28% (24-48) Monocytes (%) (Auto) 7% (0-9) Eosinophils (%) (Auto) 2% (0-3) Basophils (%) (Auto) 1% (0-3) Neutrophils # (Auto) 8.4x10^3uL (1.8-7.7) Lymphocytes # (Auto) 3.8x10^3/uL (1.0-4.8) Monocytes # (Auto) 0.9x10^3/uL (0.0-1.1) Eosinophils # (Auto) 0.3x10^3/uL (0.0-0.7) Basophils # (Auto) 0.1x10^3/uL (0.0-0.2) Prothrombin Time 12.5SEC (11.7-14.0) Prothromb Time International Ratio 1.0 (0.8-1.1) Sodium Level 140mmol/L (136-145) Potassium Level 4.0mmol/L (3.5-5.1) Chloride Level 101mmol/L (98-107) Carbon Dioxide Level 27mmol/L (21-32) Anion Gap 12 (6-14) Blood Urea Nitrogen 22mg/dL (8-26) Creatinine 1.0mg/dL (0.7-1.3) Estimated GFR (Cockcroft-Gault) 72.6 Glucose Level 132mg/dL (70-99) Calcium Level 9.6mg/dL (8.5-10.1) Troponin I Quantitative 0.036ng/mL (0.000-0.055) Triglycerides Level 184mg/dL (0-150) Cholesterol Level 176mg/dL (0-200) LDL Cholesterol, Calculated 108mg/dL (0-100) VLDL Cholesterol, Calculated 37mg/dL (0-40) HDL Cholesterol 31mg/dL (40-60) Cholesterol/HDL Ratio 5.7 Test 10/27/16 07:28 Glucose (Fingerstick) 121mg/dL (70-99) Laboratory Tests Test 10/26/16 16:57 10/26/16 17:00 10/26/16 20:52 10/27/16 06:35 Glucose (Fingerstick) 127mg/dL (70-99) 139mg/dL (70-99) White Blood Count 13.6x10^3/uL (4.0-11.0) Red Blood Count 5.86x10^6/uL (4.30-5.70) Hemoglobin 15.5g/dL (13.0-17.5) Hematocrit 47.3% (39.0-53.0) Mean Corpuscular Volume 81fL (79-100) Mean Corpuscular Hemoglobin 26pg (25-35) Mean Corpuscular Hemoglobin Concent 33g/dL (31-37) Red Cell Distribution Width 15.4% (11.5-14.5) Platelet Count 310x10^3/uL (140-400) Neutrophils (%) (Auto) 62% (31-73) Lymphocytes (%) (Auto) 28% (24-48) Monocytes (%) (Auto) 7% (0-9) Eosinophils (%) (Auto) 2% (0-3) Basophils (%) (Auto) 1% (0-3) Neutrophils # (Auto) 8.4x10^3uL (1.8-7.7) Lymphocytes # (Auto) 3.8x10^3/uL (1.0-4.8) Monocytes # (Auto) 0.9x10^3/uL (0.0-1.1) Eosinophils # (Auto) 0.3x10^3/uL (0.0-0.7) Basophils # (Auto) 0.1x10^3/uL (0.0-0.2) Prothrombin Time 12.5SEC (11.7-14.0) Prothromb Time International Ratio 1.0 (0.8-1.1) Sodium Level 140mmol/L (136-145) Potassium Level 4.0mmol/L (3.5-5.1) Chloride Level 101mmol/L (98-107) Carbon Dioxide Level 27mmol/L (21-32) Anion Gap 12 (6-14) Blood Urea Nitrogen 22mg/dL (8-26) Creatinine 1.0mg/dL (0.7-1.3) Estimated GFR (Cockcroft-Gault) 72.6 Glucose Level 132mg/dL (70-99) Calcium Level 9.6mg/dL (8.5-10.1) Troponin I Quantitative 0.036ng/mL (0.000-0.055) Triglycerides Level 184mg/dL (0-150) Cholesterol Level 176mg/dL (0-200) LDL Cholesterol, Calculated 108mg/dL (0-100) VLDL Cholesterol, Calculated 37mg/dL (0-40) HDL Cholesterol 31mg/dL (40-60) Cholesterol/HDL Ratio 5.7 Test 10/27/16 07:28 Glucose (Fingerstick) 121mg/dL (70-99) Images Images Head CT without contrast. HISTORY Right-sided weakness. Slurred speech. TECHNIQUE Computed tomographic images of the head were obtained without contrast. COMPARISON 10/14/2015 FINDINGS There is no acute hemorrhage. There is no mass effect or midline shift. There is mild to moderate ventricular enlargement, likely due to cerebral atrophy. There are scattered areas of hypodensity within the cerebral white matter, likely due to chronic small vessel disease. There are small left maxillary sinus mucous retention cysts. The orbits are unremarkable. The mastoid air cells are clear. There is no calvarial lesion. IMPRESSION 1. No acute intracranial finding. Note is made that MRI is more sensitive for acute infarction. 2. Scattered areas of hypodensity within the cerebral white matter, a nonspecific finding likely due to chronic small vessel disease. 3. Mild to moderate ventricular enlargement, appropriate for the degree of cerebral atrophy. This is not clearly greater than expected for cerebral volume to suggest normal pressure hydrocephalus. Carotid ultrasound, 10/27/2016: History: Stroke Duplex evaluation of the carotid arteries in the neck was performed including grayscale, color-flow and spectral Doppler analysis. There is moderate atherosclerotic plaquing at the carotid bifurcations including the distal right common carotid artery. There is a mild velocity acceleration in the distal right common carotid artery in an area of smooth plaquing. The peak systolic velocity is 157 cm/s. The end-diastolic velocity is 20 cm/s. Correlation with the color images suggests approximately 50% diameter narrowing. The peak systolic velocity in the right internal carotid artery is 118 cm/s with an end-diastolic velocity of 24 cm/s. There is no duplex evidence of high-grade stenosis at the right carotid bifurcation. On the left, there is a moderate velocity acceleration in in the proximal internal carotid artery up to 191 cm/s. The end-diastolic velocity is 44 cm/s. The internal carotid to common carotid artery ratio is 2.1. The Doppler findings suggest narrowing in the 50-70% diameter range. Antegrade flow is present in both vertebral arteries in the neck. IMPRESSION: 1. Moderate atherosclerotic plaquing at the left carotid bifurcation with narrowing of the proximal internal carotid artery in the 50-70% diameter range. 2. Approximately 50% narrowing of the distal right common carotid artery due to smooth plaquing. 3. Mild to moderate atherosclerotic plaquing at the right carotid bifurcation with luminal narrowing in the 0-50% diameter range. Assessment/Plan Assessment/Plan Impression: Prior left hemispheric stroke with right hemiparesis. Possible new left to Mr. stroke Sub critical left carotid artery stenosis. Recommendations: Rectal aspirin Rehabilitation modalities Await MRI and echocardiogram results I discussed my findings with the patient's son-in-law. Thank you for letting me help with the patient's care. MASSIEL WILSON MD Oct 27, 2016 11:55
[2016-10-27] MEDS: IPRATRPIUM/ALBUTEROL 0.5/2.5MG 3 ML NEBU. NEB SCH ×3 (12:58→19:40)
[2016-10-27 15:00] VITALS: BP 177/96
--- NOTE | 2016-10-27 15:06 | RAD ---
PROCEDURE MRI brain without contrast. HISTORY Slurred speech and right-sided facial weakness. Previous stroke. TECHNIQUE Sagittal T1, axial T1, axial T2, axial FLAIR, axial T2 gradient, coronal T2, and diffusion imaging with ADC map were performed. There is motion degradation despite repeat imaging and fast acquisition sequences. COMPARISON CT head from 1 day earlier. FINDINGS Restricted diffusion with ADC correlate is noted in the posterior left frontal periventricular white matter measuring 20 x 7 millimeters in size. Potential 2nd focus of increased signal on diffusion imaging could be artifactual, right temporal, measuring 23 x 10 millimeters. Left frontal finding is compatible with acute infarct, right temporal finding again could be artifactual, although second infarct is hard to exclude. This critical report was called to the patient's nurse, [place], at 1500 hours. There is prominence of the ventricles and sulci. There is mild to moderate probable small-vessel ischemic disease. There is no acute intracranial hemorrhage or extra-axial fluid collection. Punctate foci of old blood product are noted in the left parietal lobe. There is no mass effect or midline shift. Cervicomedullary junction is unremarkable. Intracranial flow voids are preserved. There is minimal ethmoid mucosal thickening. There are retention cysts in the left maxillary sinus. IMPRESSION 1. Acute infarct periventricular white matter of the posterior left frontal lobe. Second possible infarct in the right temporal lobe, this 2nd focus of increased signal on diffusion imaging could be artifactual. 2. Brain parenchymal volume loss and probable small vessel ischemic disease. Electronically signed by: Marco Lovett MD (Oct 27, 2016 15:04:51)
--- NOTE | 2016-10-27 18:37 | CARD ---
APPROVED REPORT EXAM: Two-dimensional and M-mode echocardiogram with Doppler and color Doppler. Other Information Quality : Technically Limited Rhythm : NSRTechnically limited study due to patient cooperation. INDICATION CVA/TIA 2D DIMENSIONS RVDd3.0 (2.9-3.5cm)Left Atrium(2D)4.1 (1.6-4.0cm) IVSd1.2 (0.7-1.1cm)Aortic Root(2D)2.9 (2.0-3.7cm) LVDd5.0 (3.9-5.9cm)LVOT Diameter2.3 (1.8-2.4cm) PWd1.2 (0.7-1.1cm)LVDs4.6 (2.5-4.0cm) FS (%) 7.9 %SV20.3 ml LVEF(%)17.0 (>50%) LEFT VENTRICLE The left ventricle is mildly dilated There is borderline concentric left ventricular hypertrophy. Lef t ventricle systolic function is severely impaired. The Ejection Fraction is 15-20%. There is severe global hypokinesis of the left ventricle. [place] to assess diastolic function. RIGHT VENTRICLE The right ventricle is normal size. The right ventricular systolic function is normal. ATRIA The left atrium size is normal. The right atrium was not visualized. AORTIC VALVE The aortic valve is normal in structure and function. The aortic valve is trileaflet. Doppler and Col or Flow revealed mild aortic regurgitation. There is no significant aortic valvular stenosis. MITRAL VALVE The mitral valve is normal in structure Doppler and Color Flow revealed no mitral valve regurgitation noted. TRICUSPID VALVE The tricuspid valve was not visualized. PULMONIC VALVE The pulmonic valve was not visualized. GREAT VESSELS The aortic root is normal in size. Pulmonary veins not recorded. The IVC was not visualized. PERICARDIAL EFFUSION There is no evidence of significant pericardial effusion. Critical Notification Critical Value: No <Conclusion> The left ventricle is mildly dilated and the LV EF is 17% There is severe global hypokinesis of the left ventricle. The left atrium size is normal. The right atrium was not visualized. Doppler and Color Flow revealed mild aortic regurgitation. The aortic valve is normal in structure and function. The aortic valve is trileaflet. The mitral valve is normal in structure The tricuspid valve was not visualized. The pulmonic valve was not visualized. There is no evidence of significant pericardial effusion. This was a suboptimal and incomplete echocardiogram in a pt that was not cooperating.
[2016-10-27 19:40] VITALS: BP 182/106
[2016-10-27] MEDS: LATANOPROST 0.005% OPHTH SOLUTION 2.5ML BOTTLE. OU SCH (21:00)
[2016-10-27 23:54] VITALS: BP 152/92
[2016-10-28 03:43] VITALS: BP 168/70
[2016-10-28] MEDS: IV 1/2 NORMAL SALINE 1,000 ML IV SCH (06:04)
[2016-10-28] MEDS: IPRATRPIUM/ALBUTEROL 0.5/2.5MG 3 ML NEBU. NEB SCH ×4 (06:23→20:14)
[2016-10-28 06:58] VITALS: BP 166/87
[2016-10-28] MEDS: CLOPIDOGREL BISULFATE 75 MG TABLET PO SCH (08:00)
[2016-10-28] MEDS: INSULIN ASPART 300 UNITS/3 ML INSULN.PEN SQ SCH ×3 (08:00→17:00)
[2016-10-28] MEDS: CARVEDILOL 12.5 MG TABLET. PO SCH (08:00)
[2016-10-28] MEDS: CETIRIZINE HCL 10 MG TABLET. PO SCH (09:00)
[2016-10-28] MEDS: LISINOPRIL 20 MG TABLET PO SCH (09:00)
[2016-10-28] MEDS: ASPIRIN 300 MG SUPP.RECT PR SCH (09:00)
[2016-10-28] MEDS: HYDRALAZINE 25 MG TABLET PO SCH (09:00)
[2016-10-28] MEDS: HYDROCHLOROTHIAZIDE 25 MG TABLET PO SCH (09:00)
--- NOTE | 2016-10-28 10:07 | PDOC ---
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 Daughter is power of extruder operator multiple and agrees with that determination as well. Continue to follow swallowing IV fluid Continue aspirin suppository Subjective He does not want a feeding tube and understands that he could of starvation if we do not put one in. He has an advanced directive to this effect. Objective Vital Signs Date Time Temp Pulse Resp B/P Pulse Ox O2 Delivery O2 Flow Rate FiO2 10/28/16 08:00 Room Air 10/28/16 06:58 98.4 67 20 166/87 93 98.4 Intake and Output 10/28/16 06:59 Intake Total 0 ml Output Total 200 ml Balance -200 ml Intake Oral 0 ml Output Urine Total 200 ml # Voids 4 # Bowel Movements 1 PHYSICAL EXAM Alert. Oriented to place and person. PERRL. EOMI. CN: right central facial weakness. Muscle tone: normal. Muscle strength: 3/5 right hemiparesis DTR: 1+ Plantar reflex: flexor Gait: not examined in bed. Sensory exam: no abnormal findings. No cerebellar signs elicited. Review of Relevant I have reviewed the following items trena (where applicable) has been applied. Labs Laboratory Tests Test 10/26/16 16:57 10/26/16 17:00 10/26/16 20:52 10/27/16 06:35 Glucose (Fingerstick) 127mg/dL (70-99) 139mg/dL (70-99) White Blood Count 13.6x10^3/uL (4.0-11.0) Red Blood Count 5.86x10^6/uL (4.30-5.70) Hemoglobin 15.5g/dL (13.0-17.5) Hematocrit 47.3% (39.0-53.0) Mean Corpuscular Volume 81fL (79-100) Mean Corpuscular Hemoglobin 26pg (25-35) Mean Corpuscular Hemoglobin Concent 33g/dL (31-37) Red Cell Distribution Width 15.4% (11.5-14.5) Platelet Count 310x10^3/uL (140-400) Neutrophils (%) (Auto) 62% (31-73) Lymphocytes (%) (Auto) 28% (24-48) Monocytes (%) (Auto) 7% (0-9) Eosinophils (%) (Auto) 2% (0-3) Basophils (%) (Auto) 1% (0-3) Neutrophils # (Auto) 8.4x10^3uL (1.8-7.7) Lymphocytes # (Auto) 3.8x10^3/uL (1.0-4.8) Monocytes # (Auto) 0.9x10^3/uL (0.0-1.1) Eosinophils # (Auto) 0.3x10^3/uL (0.0-0.7) Basophils # (Auto) 0.1x10^3/uL (0.0-0.2) Prothrombin Time 12.5SEC (11.7-14.0) Prothromb Time International Ratio 1.0 (0.8-1.1) Sodium Level 140mmol/L (136-145) Potassium Level 4.0mmol/L (3.5-5.1) Chloride Level 101mmol/L (98-107) Carbon Dioxide Level 27mmol/L (21-32) Anion Gap 12 (6-14) Blood Urea Nitrogen 22mg/dL (8-26) Creatinine 1.0mg/dL (0.7-1.3) Estimated GFR (Cockcroft-Gault) 72.6 Glucose Level 132mg/dL (70-99) Hemoglobin A1c 7.3% (4.8-5.6) Calcium Level 9.6mg/dL (8.5-10.1) Troponin I Quantitative 0.036ng/mL (0.000-0.055) Triglycerides Level 184mg/dL (0-150) Cholesterol Level 176mg/dL (0-200) LDL Cholesterol, Calculated 108mg/dL (0-100) VLDL Cholesterol, Calculated 37mg/dL (0-40) HDL Cholesterol 31mg/dL (40-60) Cholesterol/HDL Ratio 5.7 Test 10/27/16 07:28 10/27/16 12:05 10/27/16 17:33 10/27/16 21:10 Glucose (Fingerstick) 121mg/dL (70-99) 161mg/dL (70-99) 127mg/dL (70-99) 117mg/dL (70-99) Test 10/28/16 06:59 Glucose (Fingerstick) 120mg/dL (70-99) Laboratory Tests Test 10/27/16 12:05 10/27/16 17:33 10/27/16 21:10 10/28/16 06:59 Glucose (Fingerstick) 161mg/dL (70-99) 127mg/dL (70-99) 117mg/dL (70-99) 120mg/dL (70-99) Medications Current Medications Ondansetron HCl (Zofran) 4 mg PRN Q8HRS PRN IV NAUSEA/VOMITING; Start 10/26/16 at 18:00; Stop 10/26/16 at 19:04; Status DC Fentanyl Citrate (Fentanyl 2ml Vial) 50 mcg PRN Q2HR PRN IV PAIN; Start at 18:00; Stop 10/27/16 at 17:59; Status DC Acetaminophen (Tylenol) 650 mg PRN Q4HRS PRN PO FEVER; Start 10/26/16 at 18:00 ; Stop 10/27/16 at 17:59; Status DC Aspirin ([employer] Aspirin) 325 mg 1X ONCE PO ; Start 10/26/16 at 18:00; Stop 10/26 at 18:02; Status DC Ondansetron HCl 4 mg 4 mg PRN Q6HRS PRN IV NAUSEA/VOMITING; Start 10/26/16 at 19:02 Sodium Chloride (Iv Sodium Chloride 0.45%) 1,000 ml @ 75 mls/hr 1X ONCE IV Last administered on 10/26/16t 20:44; Start 10/26/16 at 19:15; Stop 10/27/16 at 08:34; Status DC Carvedilol (Coreg) 12.5 mg BIDWMEALS PO ; Start 10/26/16 at 20:00 Clopidogrel Bisulfate (Plavix) 75 mg DAILYWBKFT PO ; Start 10/27/16 at 08:00 Hydralazine HCl (Apresoline) 25 mg TID PO ; Start 10/26/16 at 21:00 Hydrochlorothiazide (Hydrodiuril) 25 mg DAILY PO ; Start 10/27/16 at 09:00 Lisinopril (Prinivil) 20 mg DAILY PO ; Start 10/27/16 at 09:00 Latanoprost (Xalatan) 1 drop QHS OU Last administered on 10/27/16 21:00; Start 10/26/16 at 21:00 Insulin Aspart (Novolog) 0-9 UNITS TIDWMEALS SQ ; Start 10/27/16 at 08:00 Dextrose (Dextrose 50%-Water Syringe) 12.5 gm PRN Q15MIN PRN IV SEE COMMENTS; Start 10/26/16 at 19:15 Nicotine (Nicoderm Cq 21mg) 1 patch PRN DAILY PRN TD SMOKING CESSATION Last administered on 10/26/16 20:45; Start 10/26/16 at 20:15 Cetirizine HCl (Zyrtec) 10 mg DAILY PO ; Start 10/27/16 at 10:00 Albuterol/ Ipratropium (Duoneb) 3 ml RTQID NEB Last administered on 10/28/16 06:23; Start 10/27/16 at 09:30 Guaifenesin/ Codeine Phosphate (Robitussin Ac) 5 ml PRN Q6HRS PRN PO COUGH; Start 10/27/16 at 09:00 Acetaminophen (Tylenol) 650 mg PRN Q6HRS PRN PO FEVER; Start 10/27/16 at 09:15 Acetaminophen (Acetaminophen Supp) 650 mg PRN Q6HRS PRN [place] FEVER; Start at 09:15 Ondansetron HCl (Zofran) 4 mg PRN Q6HRS PRN IV NAUSEA/VOMITING; Start 10/27/16 at 09:15 Aspirin 300 mg 300 mg DAILY [place] ; Start 10/27/16 at 09:15 Sodium Chloride (Iv Sodium Chloride 0.45%) 1,000 ml @ 75 mls/hr [id number] IV Last administered on 10/28/16 06:04; Start 10/27/16 at 11:45 Active Scripts Active Reported Potassium Chloride 10 Meq Tablet.er 20 Meq PO DAILY Metformin Hcl 500 Mg Tablet 500 Mg PO BIDWMEALS Furosemide 20 Mg Tablet 20 Mg PO DAILY Lumigan (Bimatoprost) 2.5 Ml Drops 1 Drop EACHEYE QHS Levemir (Insulin Detemir) 100 Unit/1 Ml Vial 1 Unit SQ Lipitor (Atorvastatin Calcium) 80 Mg Tablet 100 Mg PO HS Hydralazine Hcl 25 Mg Tablet 1 Tab PO TID Lisinopril 20 Mg Tablet 1 Tab PO DAILY Clopidogrel (Clopidogrel Bisulfate) 75 Mg Tablet 1 Tab PO DAILY Hydrochlorothiazide Tablet (Hydrochlorothiazide) 25 Mg Tablet 1 Tab PO DAILY Carvedilol 12.5 Mg Tablet 1 Tab PO BID Vitals/I & O Vital Sign - Last 24 Hours 10/27/16 10/27/16 10/27/16 10/27/16 11:00 13:01 14:00 15:00 Temp 96.5 97.2 96.5 97.2 Pulse 70 70 78 Resp 18 20 B/P 158/74 158/74 177/96 Pulse Ox 94 92 91 O2 Delivery Room Air Room Air Room Air 10/27/16 10/27/16 10/27/16 10/27/16 16:54 17:00 19:40 19:41 Temp 97.9 97.9 Pulse 78 78 Resp 24 B/P 177/96 182/106 Pulse Ox 93 94 O2 Delivery Room Air Room Air Room Air 10/27/16 10/27/16 10/27/16 10/28/16 20:00 21:00 23:54 03:43 Temp 99.3 98.2 99.3 98.2 Pulse 78 74 81 Resp 20 20 B/P 158/80 152/92 168/70 Pulse Ox 93 93 O2 Delivery Room Air Room Air Room Air 10/28/16 10/28/16 10/28/16 06:27 06:58 08:00 Temp 98.4 98.4 Pulse 67 Resp 20 B/P 166/87 Pulse Ox 95 93 O2 Delivery Room Air Room Air Room Air Intake and Output 10/27/16 10/27/16 10/28/16 14:59 22:59 06:59 Intake Total 0 ml 0 ml Output Total 200 ml Balance -200 ml 0 ml Images Brain MRI 10/27: Restricted diffusion with ADC correlate is noted in the posterior left frontal periventricular white matter measuring 20 x 7 millimeters in size. Potential 2nd focus of increased signal on diffusion imaging could be artifactual, right temporal, measuring 23 x 10 millimeters. Left frontal finding is compatible with acute infarct, right temporal finding again could be artifactual, although second infarct is hard to exclude. This critical report was called to the patient's nurse, [place], at 1500 hours. There is prominence of the ventricles and sulci. There is mild to moderate probable small-vessel ischemic disease. There is no acute intracranial hemorrhage or extra-axial fluid collection. Punctate foci of old blood product are noted in the left parietal lobe. There is no mass effect or midline shift. Cervicomedullary junction is unremarkable. Intracranial flow voids are preserved. There is minimal ethmoid mucosal thickening. There are retention cysts in the left maxillary sinus. IMPRESSION 1. Acute infarct periventricular white matter of the posterior left frontal lobe. Second possible infarct in the right temporal lobe, this 2nd focus of increased signal on diffusion imaging could be artifactual. 2. Brain parenchymal volume loss and probable small vessel ischemic disease. Echo: LEFT VENTRICLE The left ventricle is mildly dilated There is borderline concentric left ventricular hypertrophy. Left ventricle systolic function is severely impaired. The Ejection Fraction is 15-20%. There is severe global hypokinesis of the left ventricle. Uanble to assess diastolic function. RIGHT VENTRICLE The right ventricle is normal size. The right ventricular systolic function is normal. ATRIA The left atrium size is normal. The right atrium was not visualized. AORTIC VALVE The aortic valve is normal in structure and function. The aortic valve is trileaflet. Doppler and Color Flow revealed mild aortic regurgitation. There is no significant aortic valvular stenosis. MITRAL VALVE The mitral valve is normal in structure Doppler and Color Flow revealed no mitral valve regurgitation noted. TRICUSPID VALVE The tricuspid valve was not visualized. PULMONIC VALVE The pulmonic valve was not visualized. GREAT VESSELS The aortic root is normal in size. Pulmonary veins not recorded. The IVC was not visualized. PERICARDIAL EFFUSION There is no evidence of significant pericardial effusion. Critical Notification Critical Value: No <Conclusion> The left ventricle is mildly dilated and the LV EF is 17% There is severe global hypokinesis of the left ventricle. The left atrium size is normal. The right atrium was not visualized. Doppler and Color Flow revealed mild aortic regurgitation. The aortic valve is normal in structure and function. The aortic valve is trileaflet. The mitral valve is normal in structure The tricuspid valve was not visualized. The pulmonic valve was not visualized. There is no evidence of significant pericardial effusion. This was a suboptimal and incomplete echocardiogram in a pt that was not cooperating. MASSIEL WILSON MD Oct 28, 2016 10:07
[2016-10-28 10:56] VITALS: BP 167/94
--- NOTE | 2016-10-28 12:10 | PDOC ---
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 Acute infarct periventricular white matter of the posterior left frontal lobe. Second possible infarct in the right temporal lobe, this 2nd focus of increased signal on diffusion imaging could be artifactual. 2. Brain parenchymal volume loss and probable small vessel ischemic disease. 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 Dtr concerned abut CHF Pt does not want PER PT recs snu SW on case - dw SW - having difficulty with SN[facility] accepting hoffs, TPN might be an option BP on high side PLAN: prn IV hydralazine COnt [place] ASA Possibly TPN via PICC is an option SW for SNU NPo DINKEY MECH[employer]IC eval again Dc pO meds (if cont to fail DINKEY MECH[employer]IC) LEft voicemail to dtr re TPN vs trevor Vitals Vitals Vital Signs Date Time Temp Pulse Resp B/P Pulse Ox O2 Delivery O2 Flow Rate FiO2 10/28/16 10:56 97.7 68 19 167/94 92 Room Air 97.7 Physical Exam General: Alert, Oriented X3, Cooperative, No acute distress Heart: Regular rate Lungs: Clear, Wheezing Abdomen: Normal bowel sounds, No tenderness, No hepatosplenomegaly Extremities: No clubbing, No cyanosis, No edema Skin: No rashes, No breakdown Labs LABS Laboratory Tests Test 10/27/16 12:05 10/27/16 17:33 10/27/16 21:10 10/28/16 06:59 Glucose (Fingerstick) 161mg/dL (70-99) 127mg/dL (70-99) 117mg/dL (70-99) 120mg/dL (70-99) Test 10/28/16 11:42 Glucose (Fingerstick) 115mg/dL (70-99) Review of Systems Review of Systems weak, slurred, no headache, emesis/n/v Assessment and Plan Assessmemt and Plan Problems Medical Problems: (1) Right sided weakness Status: Acute Problems: Comment Review of Relevant I have reviewed the following items trena (where applicable) has been applied. Labs Laboratory Tests Test 4/18/17 16:57 10/26/16 17:00 10/26/16 20:52 10/27/16 06:35 Glucose (Fingerstick) 127mg/dL (70-99) 139mg/dL (70-99) White Blood Count 13.6x10^3/uL (4.0-11.0) Red Blood Count 5.86x10^6/uL (4.30-5.70) Hemoglobin 15.5g/dL (13.0-17.5) Hematocrit 47.3% (39.0-53.0) Mean Corpuscular Volume 81fL (79-100) Mean Corpuscular Hemoglobin 26pg (25-35) Mean Corpuscular Hemoglobin Concent 33g/dL (31-37) Red Cell Distribution Width 15.4% (11.5-14.5) Platelet Count 310x10^3/uL (140-400) Neutrophils (%) (Auto) 62% (31-73) Lymphocytes (%) (Auto) 28% (24-48) Monocytes (%) (Auto) 7% (0-9) Eosinophils (%) (Auto) 2% (0-3) Basophils (%) (Auto) 1% (0-3) Neutrophils # (Auto) 8.4x10^3uL (1.8-7.7) Lymphocytes # (Auto) 3.8x10^3/uL (1.0-4.8) Monocytes # (Auto) 0.9x10^3/uL (0.0-1.1) Eosinophils # (Auto) 0.3x10^3/uL (0.0-0.7) Basophils # (Auto) 0.1x10^3/uL (0.0-0.2) Prothrombin Time 12.5SEC (11.7-14.0) Prothromb Time International Ratio 1.0 (0.8-1.1) Sodium Level 140mmol/L (136-145) Potassium Level 4.0mmol/L (3.5-5.1) Chloride Level 101mmol/L (98-107) Carbon Dioxide Level 27mmol/L (21-32) Anion Gap 12 (6-14) Blood Urea Nitrogen 22mg/dL (8-26) Creatinine 1.0mg/dL (0.7-1.3) Estimated GFR (Cockcroft-Gault) 72.6 Glucose Level 132mg/dL (70-99) Hemoglobin A1c 7.3% (4.8-5.6) Calcium Level 9.6mg/dL (8.5-10.1) Troponin I Quantitative 0.036ng/mL (0.000-0.055) Triglycerides Level 184mg/dL (0-150) Cholesterol Level 176mg/dL (0-200) LDL Cholesterol, Calculated 108mg/dL (0-100) VLDL Cholesterol, Calculated 37mg/dL (0-40) HDL Cholesterol 31mg/dL (40-60) Cholesterol/HDL Ratio 5.7 Test 10/27/16 07:28 10/27/16 12:05 10/27/16 17:33 10/27/16 21:10 Glucose (Fingerstick) 121mg/dL (70-99) 161mg/dL (70-99) 127mg/dL (70-99) 117mg/dL (70-99) Test 10/28/16 06:59 10/28/16 11:42 Glucose (Fingerstick) 120mg/dL (70-99) 115mg/dL (70-99) Laboratory Tests Test 10/27/16 17:33 10/27/16 21:10 10/28/16 06:59 10/28/16 11:42 Glucose (Fingerstick) 127mg/dL (70-99) 117mg/dL (70-99) 120mg/dL (70-99) 115mg/dL (70-99) Medications Current Medications Ondansetron HCl (Zofran) 4 mg PRN Q8HRS PRN IV NAUSEA/VOMITING; Start 10/26/16 at 18:00; Stop 10/26/16 at 19:04; Status DC Fentanyl Citrate (Fentanyl 2ml Vial) 50 mcg PRN Q2HR PRN IV PAIN; Start at 18:00; Stop 10/27/16 at 17:59; Status DC Acetaminophen (Tylenol) 650 mg PRN Q4HRS PRN PO FEVER; Start 10/26/16 at 18:00 ; Stop 10/27/16 at 17:59; Status DC Aspirin ([place] Aspirin) 325 mg 1X ONCE PO ; Start 10/26/16 at 18:00; Stop 10/26 at 18:02; Status DC Ondansetron HCl 4 mg 4 mg PRN Q6HRS PRN IV NAUSEA/VOMITING; Start 10/26/16 at 19:02 Sodium Chloride (Iv Sodium Chloride 0.45%) 1,000 ml @ 75 mls/hr 1X ONCE IV Last administered on 10/26/16 20:44; Start 10/26/16 at 19:15; Stop 10/27/16 at 08:34; Status DC Carvedilol (Coreg) 12.5 mg BIDWMEALS PO ; Start 10/26/16 at 20:00 Clopidogrel Bisulfate (Plavix) 75 mg DAILYWBKFT PO ; Start 10/27/16 at 08:00 Hydralazine HCl (Apresoline) 25 mg TID PO ; Start 10/26/16 at 21:00 Hydrochlorothiazide (Hydrodiuril) 25 mg DAILY PO ; Start 10/27/16 at 09:00 Lisinopril (Prinivil) 20 mg DAILY PO ; Start 10/27/16 at 09:00 Latanoprost (Xalatan) 1 drop QHS OU Last administered on 10/27/16 21:00; Start 10/26/16 at 21:00 Insulin Aspart (Novolog) 0-9 UNITS TIDWMEALS SQ ; Start 10/27/16 at 08:00 Dextrose (Dextrose 50%-Water Syringe) 12.5 gm PRN Q15MIN PRN IV SEE COMMENTS; Start 10/26/16 at 19:15 Nicotine (Nicoderm Cq 21mg) 1 patch PRN DAILY PRN TD SMOKING CESSATION Last administered on 10/26/16 20:45; Start 10/26/16 at 20:15 Cetirizine HCl (Zyrtec) 10 mg DAILY PO ; Start 10/27/16 at 10:00 Albuterol/ Ipratropium (Duoneb) 3 ml RTQID NEB Last administered on 10/28/16 06:23; Start 10/27/16 at 09:30 Guaifenesin/ Codeine Phosphate (Robitussin Ac) 5 ml PRN Q6HRS PRN PO COUGH; Start 10/27/16 at 09:00 Acetaminophen (Tylenol) 650 mg PRN Q6HRS PRN PO FEVER; Start 10/27/16 at 09:15 Acetaminophen (Acetaminophen Supp) 650 mg PRN Q6HRS PRN [place] FEVER; Start at 09:15 Ondansetron HCl (Zofran) 4 mg PRN Q6HRS PRN IV NAUSEA/VOMITING; Start 10/27/16 at 09:15 Aspirin 300 mg 300 mg DAILY [place] ; Start 10/27/16 at 09:15 Sodium Chloride (Iv Sodium Chloride 0.45%) 1,000 ml @ 75 mls/hr [id number] IV Last administered on 10/28/16t 06:04; Start 10/27/16 at 11:45 Active Scripts Active Reported Potassium Chloride 10 Meq Tablet.er 20 Meq PO DAILY Metformin Hcl 500 Mg Tablet 500 Mg PO BIDWMEALS Furosemide 20 Mg Tablet 20 Mg PO DAILY Lumigan (Bimatoprost) 2.5 Ml Drops 1 Drop EACHEYE QHS Levemir (Insulin Detemir) 100 Unit/1 Ml Vial 1 Unit SQ Lipitor (Atorvastatin Calcium) 80 Mg Tablet 100 Mg PO HS Hydralazine Hcl 25 Mg Tablet 1 Tab PO TID Lisinopril 20 Mg Tablet 1 Tab PO DAILY Clopidogrel (Clopidogrel Bisulfate) 75 Mg Tablet 1 Tab PO DAILY Hydrochlorothiazide Tablet (Hydrochlorothiazide) 25 Mg Tablet 1 Tab PO DAILY Carvedilol 12.5 Mg Tablet 1 Tab PO BID Vitals/I & O Vital Sign - Last 24 Hours 10/27/16 10/27/16 10/27/16 10/27/16 13:01 14:00 15:00 16:54 Temp 97.2 97.2 Pulse 70 78 Resp 20 B/P 158/74 177/96 Pulse Ox 92 91 O2 Delivery Room Air Room Air Room Air 10/27/16 10/27/16 10/27/16 10/27/16 17:00 19:40 19:41 20:00 Temp 97.9 97.9 Pulse 78 78 Resp 24 B/P 177/96 182/106 Pulse Ox 93 94 O2 Delivery Room Air Room Air Room Air 10/27/16 10/27/16 10/28/16 10/28/16 21:00 23:54 03:43 06:27 Temp 99.3 98.2 99.3 98.2 Pulse 78 74 81 Resp 20 20 B/P 158/80 152/92 168/70 Pulse Ox 93 93 95 O2 Delivery Room Air Room Air Room Air 10/28/16 10/28/16 10/28/16 10/28/16 06:58 08:00 08:00 09:00 Temp 98.4 98.4 Pulse 67 67 67 Resp 20 B/P 166/87 166/87 166/87 Pulse Ox 93 O2 Delivery Room Air Room Air 10/28/16 10/28/16 09:00 10:56 Temp 97.7 97.7 Pulse 67 68 Resp 19 B/P 166/87 167/94 Pulse Ox 92 O2 Delivery Room Air Intake and Output 10/27/16 10/27/16 10/28/16 15:00 23:00 07:00 Intake Total 0 ml 0 ml Output Total 200 ml Balance -200 ml 0 ml KATELYN BOSS MD Oct 28, 2016 12:10
[2016-10-28] MEDS ORDERED: hydrALAZINE 20 MG/ML VIAL. IVP PRN (12:15)
[2016-10-28] MEDS ORDERED: TPN PER PHARMACY MC PRN (12:15)
[2016-10-28 14:04] LABS: CALCIUM 8.9 mg/dL (8.5-10.1); CREATININE 1.1 mg/dL (0.7-1.3); GFR 65.1; POTASSIUM 3.6 mmol/L (3.5-5.1)
[2016-10-28 14:07] LABS: MAGNESIUM 1.8 mg/dL (1.8-2.4); PHOSPHORUS 3.4 mg/dL (2.6-4.7)
[2016-10-28 14:49] VITALS: BP 132/90
[2016-10-28] MEDS: AA 3%/ELECTROLYTE-TPN SOLN/GLY 1,000 ML IV SCH (15:37)
[2016-10-28 19:51] VITALS: BP 159/81
[2016-10-28] MEDS: LATANOPROST 0.005% OPHTH SOLUTION 2.5ML BOTTLE. OU SCH (20:39)
[2016-10-29 00:32] VITALS: BP 168/63
[2016-10-29] MEDS: AA 3%/ELECTROLYTE-TPN SOLN/GLY 1,000 ML IV SCH (03:00)
[2016-10-29 06:58] LABS: CALCIUM 9.2 mg/dL (8.5-10.1); CREATININE 0.9 mg/dL (0.7-1.3); POTASSIUM 4.1 mmol/L (3.5-5.1)
[2016-10-29 07:00] VITALS: BP 154/75
[2016-10-29] MEDS: INSULIN ASPART 300 UNITS/3 ML INSULN.PEN SQ SCH ×2 (08:00→12:00)
[2016-10-29] MEDS: ASPIRIN 300 MG SUPP.RECT PR SCH (08:49)
[2016-10-29] MEDS: IPRATRPIUM/ALBUTEROL 0.5/2.5MG 3 ML NEBU. NEB SCH (09:10)
--- NOTE | 2016-10-29 10:27 | PDOC ---
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 Acute infarct periventricular white matter of the posterior left frontal lobe. Second possible infarct in the right temporal lobe, this 2nd focus of increased signal on diffusion imaging could be artifactual. 2. Brain parenchymal volume loss and probable small vessel ischemic disease. BP high side - hydralazine on - nothing lower than systolic 140s PLAN: prn IV hydralazine COnt [place] ASA TPN via PICC today by IR NPo SNU - SW on Vitals Vitals Vital Signs Date Time Temp Pulse Resp B/P Pulse Ox O2 Delivery O2 Flow Rate FiO2 10/29/16 09:10 96 Room Air 10/29/16 07:00 98.0 84 16 154/75 98.0 Physical Exam General: Alert, Oriented X3, Cooperative, No acute distress Heart: Regular rate Lungs: Clear, Wheezing Abdomen: Normal bowel sounds, No tenderness, No hepatosplenomegaly Extremities: No clubbing, No cyanosis, No edema Skin: No rashes, No breakdown Labs LABS Laboratory Tests Test 10/28/16 11:42 10/28/16 13:40 10/28/16 17:34 10/28/16 21:04 Glucose (Fingerstick) 115mg/dL (70-99) 114mg/dL (70-99) 115mg/dL (70-99) Sodium Level 138mmol/L (136-145) Potassium Level 3.6mmol/L (3.5-5.1) Chloride Level 100mmol/L (98-107) Carbon Dioxide Level 32mmol/L (21-32) Anion Gap 6 (6-14) Blood Urea Nitrogen 14mg/dL (8-26) Creatinine 1.1mg/dL (0.7-1.3) Estimated GFR (Cockcroft-Gault) 65.1 Glucose Level 130mg/dL (70-99) Calcium Level 8.9mg/dL (8.5-10.1) Phosphorus Level 3.4mg/dL (2.6-4.7) Magnesium Level 1.8mg/dL (1.8-2.4) Test 10/29/16 05:55 10/29/16 07:21 Sodium Level 139mmol/L (136-145) Potassium Level 4.1mmol/L (3.5-5.1) Chloride Level 101mmol/L (98-107) Carbon Dioxide Level 26mmol/L (21-32) Anion Gap 12 (6-14) Blood Urea Nitrogen 15mg/dL (8-26) Creatinine 0.9mg/dL (0.7-1.3) Estimated GFR (Cockcroft-Gault) 82.0 Glucose Level 124mg/dL (70-99) Calcium Level 9.2mg/dL (8.5-10.1) Glucose (Fingerstick) 136mg/dL (70-99) Review of Systems Review of Systems minimal, slurred speech Assessment and Plan Assessmemt and Plan Problems Medical Problems: (1) Right sided weakness Status: Acute Problems: Comment Review of Relevant I have reviewed the following items trena (where applicable) has been applied. Labs Laboratory Tests Test 10/27/16 12:05 10/27/16 17:33 10/27/16 21:10 10/28/16 06:59 Glucose (Fingerstick) 161mg/dL (70-99) 127mg/dL (70-99) 117mg/dL (70-99) 120mg/dL (70-99) Test 10/28/16 11:42 10/28/16 13:40 10/28/16 17:34 10/28/16 21:04 Glucose (Fingerstick) 115mg/dL (70-99) 114mg/dL (70-99) 115mg/dL (70-99) Sodium Level 138mmol/L (136-145) Potassium Level 3.6mmol/L (3.5-5.1) Chloride Level 100mmol/L (98-107) Carbon Dioxide Level 32mmol/L (21-32) Anion Gap 6 (6-14) Blood Urea Nitrogen 14mg/dL (8-26) Creatinine 1.1mg/dL (0.7-1.3) Estimated GFR (Cockcroft-Gault) 65.1 Glucose Level 130mg/dL (70-99) Calcium Level 8.9mg/dL (8.5-10.1) Phosphorus Level 3.4mg/dL (2.6-4.7) Magnesium Level 1.8mg/dL (1.8-2.4) Test 10/29/16 05:55 10/29/16 07:21 Sodium Level 139mmol/L (136-145) Potassium Level 4.1mmol/L (3.5-5.1) Chloride Level 101mmol/L (98-107) Carbon Dioxide Level 26mmol/L (21-32) Anion Gap 12 (6-14) Blood Urea Nitrogen 15mg/dL (8-26) Creatinine 0.9mg/dL (0.7-1.3) Estimated GFR (Cockcroft-Gault) 82.0 Glucose Level 124mg/dL (70-99) Calcium Level 9.2mg/dL (8.5-10.1) Glucose (Fingerstick) 136mg/dL (70-99) Laboratory Tests Test 10/28/16 11:42 10/28/16 13:40 10/28/16 17:34 10/28/16 21:04 Glucose (Fingerstick) 115mg/dL (70-99) 114mg/dL (70-99) 115mg/dL (70-99) Sodium Level 138mmol/L (136-145) Potassium Level 3.6mmol/L (3.5-5.1) Chloride Level 100mmol/L (98-107) Carbon Dioxide Level 32mmol/L (21-32) Anion Gap 6 (6-14) Blood Urea Nitrogen 14mg/dL (8-26) Creatinine 1.1mg/dL (0.7-1.3) Estimated GFR (Cockcroft-Gault) 65.1 Glucose Level 130mg/dL (70-99) Calcium Level 8.9mg/dL (8.5-10.1) Phosphorus Level 3.4mg/dL (2.6-4.7) Magnesium Level 1.8mg/dL (1.8-2.4) Test 10/29/16 05:55 10/29/16 07:21 Sodium Level 139mmol/L (136-145) Potassium Level 4.1mmol/L (3.5-5.1) Chloride Level 101mmol/L (98-107) Carbon Dioxide Level 26mmol/L (21-32) Anion Gap 12 (6-14) Blood Urea Nitrogen 15mg/dL (8-26) Creatinine 0.9mg/dL (0.7-1.3) Estimated GFR (Cockcroft-Gault) 82.0 Glucose Level 124mg/dL (70-99) Calcium Level 9.2mg/dL (8.5-10.1) Glucose (Fingerstick) 136mg/dL (70-99) Medications Current Medications Ondansetron HCl (Zofran) 4 mg PRN Q8HRS PRN IV NAUSEA/VOMITING; Start 10/26/16 at 18:00; Stop 10/26/16 at 19:04; Status DC Fentanyl Citrate (Fentanyl 2ml Vial) 50 mcg PRN Q2HR PRN IV PAIN; Start at 18:00; Stop 10/27/16 at 17:59; Status DC Acetaminophen (Tylenol) 650 mg PRN Q4HRS PRN PO FEVER; Start 10/26/16 at 18:00 ; Stop 10/27/16 at 17:59; Status DC Aspirin ([employer] Aspirin) 325 mg 1X ONCE PO ; Start 10/26/16 at 18:00; Stop 10/26 at 18:02; Status DC Ondansetron HCl 4 mg 4 mg PRN Q6HRS PRN IV NAUSEA/VOMITING; Start 10/26/16 at 19:02; Stop 10/28/16 at 12:34; Status DC Sodium Chloride (Iv Sodium Chloride 0.45%) 1,000 ml @ 75 mls/hr 1X ONCE IV Last administered on 10/26/16t 20:44; Start 10/26/16 at 19:15; Stop 10/27/16 at 08:34; Status DC Carvedilol (Coreg) 12.5 mg BIDWMEALS PO ; Start 10/26/16 at 20:00; Stop at 12:07; Status DC Clopidogrel Bisulfate (Plavix) 75 mg DAILYWBKFT PO ; Start 10/27/16 at 08:00; Stop 10/28/16 at 12:07; Status DC Hydralazine HCl (Apresoline) 25 mg TID PO ; Start 10/26/16 at 21:00; Stop at 12:07; Status DC Hydrochlorothiazide (Hydrodiuril) 25 mg DAILY PO ; Start 10/27/16 at 09:00; Stop 10/28/16 at 12:07; Status DC Lisinopril (Prinivil) 20 mg DAILY PO ; Start 10/27/16 at 09:00; Stop 10/28/16 at 12:07; Status DC Latanoprost (Xalatan) 1 drop QHS OU Last administered on 10/28/16 20:39; Start 10/26/16 at 21:00 Insulin Aspart (Novolog) 0-9 UNITS TIDWMEALS SQ ; Start 10/27/16 at 08:00 Dextrose (Dextrose 50%-Water Syringe) 12.5 gm PRN Q15MIN PRN IV SEE COMMENTS; Start 10/26/16 at 19:15 Nicotine (Nicoderm Cq 21mg) 1 patch PRN DAILY PRN TD SMOKING CESSATION Last administered on 10/26/16 20:45; Start 10/26/16 at 20:15 Cetirizine HCl (Zyrtec) 10 mg DAILY PO ; Start 10/27/16 at 10:00; Stop 10/28/16 at 12:07; Status DC Albuterol/ Ipratropium (Duoneb) 3 ml RTQID NEB Last administered on 10/29/16 09:10; Start 10/27/16 at 09:30 Guaifenesin/ Codeine Phosphate (Robitussin Ac) 5 ml PRN Q6HRS PRN PO COUGH; Start 10/27/16 at 09:00; Stop 10/28/16 at 12:07; Status DC Acetaminophen (Tylenol) 650 mg PRN Q6HRS PRN PO FEVER; Start 10/27/16 at 09:15 ; Stop 10/28/16 at 12:07; Status DC Acetaminophen (Acetaminophen Supp) 650 mg PRN Q6HRS PRN [place] FEVER; Start at 09:15 Ondansetron HCl (Zofran) 4 mg PRN Q6HRS PRN IV NAUSEA/VOMITING; Start 10/27/16 at 09:15 Aspirin 300 mg 300 mg DAILY [place] Last administered on 10/29/16 08:49; Start at 09:15 Sodium Chloride (Iv Sodium Chloride 0.45%) 1,000 ml @ 75 mls/hr [id number] IV Last administered on 10/28/16 06:04; Start 10/27/16 at 11:45; Stop 10/28/16 at 12:11; Status DC Hydralazine HCl (Apresoline) 10 mg PRN Q4HRS PRN IVP ELEVATED BP, SEE COMMENTS ; Start 10/28/16 at 12:15 Info 1 each 1 each PRN DAILY PRN MC SEE COMMENTS; Start 10/28/16 at 12:15 Amino Acids/ Glycerin/ Electrolytes (Procalamine) 1,000 ml @ 80 mls/hr [id number] IV Last administered on 10/28/16 15:37; Start 10/28/16 at 14:30 Active Scripts Active Reported Potassium Chloride 10 Meq Tablet.er 20 Meq PO DAILY Metformin Hcl 500 Mg Tablet 500 Mg PO BIDWMEALS Furosemide 20 Mg Tablet 20 Mg PO DAILY Lumigan (Bimatoprost) 2.5 Ml Drops 1 Drop EACHEYE QHS Levemir (Insulin Detemir) 100 Unit/1 Ml Vial 1 Unit SQ Lipitor (Atorvastatin Calcium) 80 Mg Tablet 100 Mg PO HS Hydralazine Hcl 25 Mg Tablet 1 Tab PO TID Lisinopril 20 Mg Tablet 1 Tab PO DAILY Clopidogrel (Clopidogrel Bisulfate) 75 Mg Tablet 1 Tab PO DAILY Hydrochlorothiazide Tablet (Hydrochlorothiazide) 25 Mg Tablet 1 Tab PO DAILY Carvedilol 12.5 Mg Tablet 1 Tab PO BID Vitals/I & O Vital Sign - Last 24 Hours 10/28/16 10/28/16 10/28/16 10/28/16 10:56 12:31 14:49 16:06 Temp 97.7 97.5 97.7 97.5 Pulse 68 74 Resp 19 19 B/P 167/94 132/90 Pulse Ox 92 93 98 O2 Delivery Room Air Room Air Room Air Room Air 10/28/16 10/28/16 10/28/16 10/29/16 19:51 20:00 20:14 00:32 Temp 99.0 98.1 99.0 98.1 Pulse 74 84 Resp 16 24 B/P 159/81 168/63 Pulse Ox 91 98 94 O2 Delivery Room Air Room Air Room Air Room Air 10/29/16 10/29/16 10/29/16 07:00 08:00 09:10 Temp 98.0 98.0 Pulse 84 Resp 16 B/P 154/75 Pulse Ox 91 96 O2 Delivery Room Air Room Air Room Air Intake and Output 10/28/16 10/28/16 10/29/16 14:59 22:59 06:59 Intake Total 0 ml 0 ml 0 ml Balance 0 ml 0 ml 0 ml KATELYN BOSS MD Oct 29, 2016 10:27
--- NOTE | 2016-10-29 10:43 | PDOC3 ---
Discharge Summary Visit Information Date of Admission: Oct 26, 2016 Date of Discharge: Oct 29, 2016 Admitting Diagnosis Comment: New left hemispheric lacunar stroke Possible right frontal stroke, likely artifact Old left hemisphere lacunar stroke Neurogenic dysphagia MAlignant HTN POA, resolved DM 2 on OHA HTN UNCONTROLLED Obesity/overweight Intolerance to statin NAsal congestion/viral uri sxs Final Diagnosis Problems Medical Problems: (1) Acute ischemic stroke Status: Acute (2) Right sided weakness Status: Acute Brief Hospital Course Allergies Allergies Coded Allergies Type Severity Reaction Last Updated Verified [id number] Reductase Inhibitor Allergy Intermediate Hives 04/28/16 Yes Vital Signs Vital Signs Date Time Temp Pulse Resp B/P Pulse Ox O2 Delivery O2 Flow Rate FiO2 10/29/16 09:10 96 Room Air 10/29/16 07:00 98.0 84 16 154/75 98.0 Lab Results Laboratory Tests Test 10/27/16 12:05 10/27/16 17:33 10/27/16 21:10 10/28/16 06:59 Glucose (Fingerstick) 161mg/dL (70-99) 127mg/dL (70-99) 117mg/dL (70-99) 120mg/dL (70-99) Test 10/28/16 11:42 10/28/16 13:40 10/28/16 17:34 10/28/16 21:04 Glucose (Fingerstick) 115mg/dL (70-99) 114mg/dL (70-99) 115mg/dL (70-99) Sodium Level 138mmol/L (136-145) Potassium Level 3.6mmol/L (3.5-5.1) Chloride Level 100mmol/L (98-107) Carbon Dioxide Level 32mmol/L (21-32) Anion Gap 6 (6-14) Blood Urea Nitrogen 14mg/dL (8-26) Creatinine 1.1mg/dL (0.7-1.3) Estimated GFR (Cockcroft-Gault) 65.1 Glucose Level 130mg/dL (70-99) Calcium Level 8.9mg/dL (8.5-10.1) Phosphorus Level 3.4mg/dL (2.6-4.7) Magnesium Level 1.8mg/dL (1.8-2.4) Test 10/29/16 05:55 10/29/16 07:21 Sodium Level 139mmol/L (136-145) Potassium Level 4.1mmol/L (3.5-5.1) Chloride Level 101mmol/L (98-107) Carbon Dioxide Level 26mmol/L (21-32) Anion Gap 12 (6-14) Blood Urea Nitrogen 15mg/dL (8-26) Creatinine 0.9mg/dL (0.7-1.3) Estimated GFR (Cockcroft-Gault) 82.0 Glucose Level 124mg/dL (70-99) Calcium Level 9.2mg/dL (8.5-10.1) Glucose (Fingerstick) 136mg/dL (70-99) Laboratory Tests Test 10/28/16 11:42 10/28/16 13:40 10/28/16 17:34 10/28/16 21:04 Glucose (Fingerstick) 115mg/dL (70-99) 114mg/dL (70-99) 115mg/dL (70-99) Sodium Level 138mmol/L (136-145) Potassium Level 3.6mmol/L (3.5-5.1) Chloride Level 100mmol/L (98-107) Carbon Dioxide Level 32mmol/L (21-32) Anion Gap 6 (6-14) Blood Urea Nitrogen 14mg/dL (8-26) Creatinine 1.1mg/dL (0.7-1.3) Estimated GFR (Cockcroft-Gault) 65.1 Glucose Level 130mg/dL (70-99) Calcium Level 8.9mg/dL (8.5-10.1) Phosphorus Level 3.4mg/dL (2.6-4.7) Magnesium Level 1.8mg/dL (1.8-2.4) Test 10/29/16 05:55 10/29/16 07:21 Sodium Level 139mmol/L (136-145) Potassium Level 4.1mmol/L (3.5-5.1) Chloride Level 101mmol/L (98-107) Carbon Dioxide Level 26mmol/L (21-32) Anion Gap 12 (6-14) Blood Urea Nitrogen 15mg/dL (8-26) Creatinine 0.9mg/dL (0.7-1.3) Estimated GFR (Cockcroft-Gault) 82.0 Glucose Level 124mg/dL (70-99) Calcium Level 9.2mg/dL (8.5-10.1) Glucose (Fingerstick) 136mg/dL (70-99) Brief Hospital Course Mr. 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 Opted for hospice ,. That is being arranged home hospice,Dw neuro, SW and RN Pt seen and examined Consults: neuro Dipso; Home with hospice DNR Proc; MRI brain Discharge Information Condition at Discharge: Improved, Stable Disposition/Orders: D/C to Home w/ Hospice Scheduled Atorvastatin Calcium (Lipitor) 100 MG PO HS (Reported) Bimatoprost (Lumigan) 1 DROP EACHEYE QHS (Reported) Carvedilol (Carvedilol) 1 TAB PO BID (Reported) Clopidogrel Bisulfate (Clopidogrel) 1 TAB PO DAILY (Reported) Furosemide (Furosemide) 20 MG PO DAILY (Reported) Hydralazine Hcl (Hydralazine Hcl) 1 TAB PO TID (Reported) Hydrochlorothiazide (Hydrochlorothiazide Tablet ) 1 TAB PO DAILY (Reported) Lisinopril (Lisinopril) 1 TAB PO DAILY (Reported) Metformin Hcl (Metformin Hcl) 500 MG PO BIDWMEALS (Reported) Potassium Chloride (Potassium Chloride) 20 MEQ PO DAILY (Reported) Miscellaneous Medications Insulin Detemir (Levemir) 1 UNIT SQ (Reported) KATELYN BOSS MD Oct 29, 2016 10:43
--- NOTE | 2016-10-29 10:55 | PDOC ---
PROGRESS NOTES Assessment Problems Medical Problems: (1) Acute ischemic stroke Status: Acute (2) Right sided weakness Status: Acute New left hemispheric lacunar stroke Possible right frontal stroke, likely artifact Old left hemisphere lacunar stroke Neurogenic dysphagia, unlikely to recover for several more weeks or months according to speech therapist Plan The patient has mental capacity to make the decision regarding his feeding tube and we need to respect that. Daughter is power of document review attorney and agrees with that determination as well. Patient/daughter agree that he will go home with hospice care, they do not even want an IV Patient can always change his mind Okay for discharge to hospice Subjective wants to go home Objective Vital Signs Date Time Temp Pulse Resp B/P Pulse Ox O2 Delivery O2 Flow Rate FiO2 10/29/16 09:10 96 Room Air 10/29/16 07:00 98.0 84 16 154/75 98.0 Intake and Output 10/29/16 07:00 Intake Total 0 ml Balance 0 ml Intake Oral 0 ml # Voids 9 PHYSICAL EXAM Alert. Oriented to place and person. PERRL. EOMI. CN: right central facial weakness. Muscle tone: normal. Muscle strength: 3/5 right hemiparesis DTR: 1+ Plantar reflex: flexor Gait: not examined in bed. Sensory exam: no abnormal findings. No cerebellar signs elicited. Review of Relevant I have reviewed the following items trena (where applicable) has been applied. Labs Laboratory Tests Test 10/27/16 12:05 10/27/16 17:33 10/27/16 21:10 10/28/16 06:59 Glucose (Fingerstick) 161mg/dL (70-99) 127mg/dL (70-99) 117mg/dL (70-99) 120mg/dL (70-99) Test 10/28/16 11:42 10/28/16 13:40 10/28/16 17:34 10/28/16 21:04 Glucose (Fingerstick) 115mg/dL (70-99) 114mg/dL (70-99) 115mg/dL (70-99) Sodium Level 138mmol/L (136-145) Potassium Level 3.6mmol/L (3.5-5.1) Chloride Level 100mmol/L (98-107) Carbon Dioxide Level 32mmol/L (21-32) Anion Gap 6 (6-14) Blood Urea Nitrogen 14mg/dL (8-26) Creatinine 1.1mg/dL (0.7-1.3) Estimated GFR (Cockcroft-Gault) 65.1 Glucose Level 130mg/dL (70-99) Calcium Level 8.9mg/dL (8.5-10.1) Phosphorus Level 3.4mg/dL (2.6-4.7) Magnesium Level 1.8mg/dL (1.8-2.4) Test 10/29/16 05:55 10/29/16 07:21 Sodium Level 139mmol/L (136-145) Potassium Level 4.1mmol/L (3.5-5.1) Chloride Level 101mmol/L (98-107) Carbon Dioxide Level 26mmol/L (21-32) Anion Gap 12 (6-14) Blood Urea Nitrogen 15mg/dL (8-26) Creatinine 0.9mg/dL (0.7-1.3) Estimated GFR (Cockcroft-Gault) 82.0 Glucose Level 124mg/dL (70-99) Calcium Level 9.2mg/dL (8.5-10.1) Glucose (Fingerstick) 136mg/dL (70-99) Laboratory Tests Test 10/28/16 11:42 10/28/16 13:40 10/28/16 17:34 10/28/16 21:04 Glucose (Fingerstick) 115mg/dL (70-99) 114mg/dL (70-99) 115mg/dL (70-99) Sodium Level 138mmol/L (136-145) Potassium Level 3.6mmol/L (3.5-5.1) Chloride Level 100mmol/L (98-107) Carbon Dioxide Level 32mmol/L (21-32) Anion Gap 6 (6-14) Blood Urea Nitrogen 14mg/dL (8-26) Creatinine 1.1mg/dL (0.7-1.3) Estimated GFR (Cockcroft-Gault) 65.1 Glucose Level 130mg/dL (70-99) Calcium Level 8.9mg/dL (8.5-10.1) Phosphorus Level 3.4mg/dL (2.6-4.7) Magnesium Level 1.8mg/dL (1.8-2.4) Test 10/29/16 05:55 10/29/16 07:21 Sodium Level 139mmol/L (136-145) Potassium Level 4.1mmol/L (3.5-5.1) Chloride Level 101mmol/L (98-107) Carbon Dioxide Level 26mmol/L (21-32) Anion Gap 12 (6-14) Blood Urea Nitrogen 15mg/dL (8-26) Creatinine 0.9mg/dL (0.7-1.3) Estimated GFR (Cockcroft-Gault) 82.0 Glucose Level 124mg/dL (70-99) Calcium Level 9.2mg/dL (8.5-10.1) Glucose (Fingerstick) 136mg/dL (70-99) Medications Current Medications Ondansetron HCl (Zofran) 4 mg PRN Q8HRS PRN IV NAUSEA/VOMITING; Start 10/26/16 at 18:00; Stop 10/26/16 at 19:04; Status DC Fentanyl Citrate (Fentanyl 2ml Vial) 50 mcg PRN Q2HR PRN IV PAIN; Start at 18:00; Stop 10/27/16 at 17:59; Status DC Acetaminophen (Tylenol) 650 mg PRN Q4HRS PRN PO FEVER; Start 10/26/16 at 18:00 ; Stop 10/27/16 at 17:59; Status DC Aspirin (Smitha Aspirin) 325 mg 1X ONCE PO ; Start 10/26/16 at 18:00; Stop 10/26 at 18:02; Status DC Ondansetron HCl 4 mg 4 mg PRN Q6HRS PRN IV NAUSEA/VOMITING; Start 10/26/16 at 19:02; Stop 10/28/16 at 12:34; Status DC Sodium Chloride (Iv Sodium Chloride 0.45%) 1,000 ml @ 75 mls/hr 1X ONCE IV Last administered on 10/26/16t 20:44; Start 10/26/16 at 19:15; Stop 10/27/16 at 08:34; Status DC Carvedilol (Coreg) 12.5 mg BIDWMEALS PO ; Start 10/26/16 at 20:00; Stop at 12:07; Status DC Clopidogrel Bisulfate (Plavix) 75 mg DAILYWBKFT PO ; Start 10/27/16 at 08:00; Stop 10/28/16 at 12:07; Status DC Hydralazine HCl (Apresoline) 25 mg TID PO ; Start 10/26/16 at 21:00; Stop at 12:07; Status DC Hydrochlorothiazide (Hydrodiuril) 25 mg DAILY PO ; Start 10/27/16 at 09:00; Stop 10/28/16 at 12:07; Status DC Lisinopril (Prinivil) 20 mg DAILY PO ; Start 10/27/16 at 09:00; Stop 10/28/16 at 12:07; Status DC Latanoprost (Xalatan) 1 drop QHS OU Last administered on 10/28/16 20:39; Start 10/26/16 at 21:00 Insulin Aspart (Novolog) 0-9 UNITS TIDWMEALS SQ ; Start 10/27/16 at 08:00 Dextrose (Dextrose 50%-Water Syringe) 12.5 gm PRN Q15MIN PRN IV SEE COMMENTS; Start 10/26/16 at 19:15 Nicotine (Nicoderm Cq 21mg) 1 patch PRN DAILY PRN TD SMOKING CESSATION Last administered on 10/26/16 20:45; Start 10/26/16 at 20:15 Cetirizine HCl (Zyrtec) 10 mg DAILY PO ; Start 10/27/16 at 10:00; Stop 10/28/16 at 12:07; Status DC Albuterol/ Ipratropium (Duoneb) 3 ml RTQID NEB Last administered on 10/29/16 09:10; Start 10/27/16 at 09:30 Guaifenesin/ Codeine Phosphate (Robitussin Ac) 5 ml PRN Q6HRS PRN PO COUGH; Start 10/27/16 at 09:00; Stop 10/28/16 at 12:07; Status DC Acetaminophen (Tylenol) 650 mg PRN Q6HRS PRN PO FEVER; Start 10/27/16 at 09:15 ; Stop 10/28/16 at 12:07; Status DC Acetaminophen (Acetaminophen Supp) 650 mg PRN Q6HRS PRN [place] FEVER; Start at 09:15 Ondansetron HCl (Zofran) 4 mg PRN Q6HRS PRN IV NAUSEA/VOMITING; Start 10/27/16 at 09:15 Aspirin 300 mg 300 mg DAILY NC Last administered on 10/29/16 08:49; Start at 09:15 Sodium Chloride (Iv Sodium Chloride 0.45%) 1,000 ml @ 75 mls/hr [id number] IV Last administered on 10/28/16 06:04; Start 10/27/16 at 11:45; Stop 10/28/16 at 12:11; Status DC Hydralazine HCl (Apresoline) 10 mg PRN Q4HRS PRN IVP ELEVATED BP, SEE COMMENTS ; Start 10/28/16 at 12:15 Info 1 each 1 each PRN DAILY PRN MC SEE COMMENTS; Start 10/28/16 at 12:15 Amino Acids/ Glycerin/ Electrolytes (Procalamine) 1,000 ml @ 80 mls/hr [id number] IV Last administered on 10/28/16 15:37; Start 10/28/16 at 14:30 Active Scripts Active Reported Potassium Chloride 10 Meq Tablet.er 20 Meq PO DAILY Metformin Hcl 500 Mg Tablet 500 Mg PO BIDWMEALS Furosemide 20 Mg Tablet 20 Mg PO DAILY Lumigan (Bimatoprost) 2.5 Ml Drops 1 Drop EACHEYE QHS Levemir (Insulin Detemir) 100 Unit/1 Ml Vial 1 Unit SQ Lipitor (Atorvastatin Calcium) 80 Mg Tablet 100 Mg PO HS Hydralazine Hcl 25 Mg Tablet 1 Tab PO TID Lisinopril 20 Mg Tablet 1 Tab PO DAILY Clopidogrel (Clopidogrel Bisulfate) 75 Mg Tablet 1 Tab PO DAILY Hydrochlorothiazide Tablet (Hydrochlorothiazide) 25 Mg Tablet 1 Tab PO DAILY Carvedilol 12.5 Mg Tablet 1 Tab PO BID Vitals/I & O Vital Sign - Last 24 Hours 10/28/16 10/28/16 10/28/16 10/28/16 10:56 12:31 14:49 16:06 Temp 97.7 97.5 97.7 97.5 Pulse 68 74 Resp 19 19 B/P 167/94 132/90 Pulse Ox 92 93 98 O2 Delivery Room Air Room Air Room Air Room Air 10/28/16 10/28/16 10/28/16 10/29/16 19:51 20:00 20:14 00:32 Temp 99.0 98.1 99.0 98.1 Pulse 74 84 Resp 16 24 B/P 159/81 168/63 Pulse Ox 91 98 94 O2 Delivery Room Air Room Air Room Air Room Air 10/29/16 10/29/16 10/29/16 07:00 08:00 09:10 Temp 98.0 98.0 Pulse 84 Resp 16 B/P 154/75 Pulse Ox 91 96 O2 Delivery Room Air Room Air Room Air Intake and Output 10/28/16 10/28/16 10/29/16 15:00 23:00 07:00 Intake Total 0 ml 0 ml 0 ml Balance 0 ml 0 ml 0 ml MASSIEL WILSON MD Oct 29, 2016 10:55
[2016-10-29 11:00] VITALS: BP 152/68
[2016-10-29] MEDS ORDERED: LIDOCAINE 1% / SOD BICARB 8.4% 20 ML VIAL. IJ ONE (12:51)
[2016-10-29 15:00] VITALS: BP 152/68
[2016-10-29] MEDS ORDERED: ACET650S11 RC (15:18)
[2016-10-29] MEDS ORDERED: ASPI300S RC (15:19)
[2016-10-29] MEDS ORDERED: IPRA3AMP NEB (15:21)
[2016-10-29] MEDS ORDERED: LATA2.5D3 EACHEYE (15:21)
== END 2016-10-29 16:25 | disposition hospice, home (50) | DRG 65 ==
LOC: ER 16:42 → 6 SOUTH 17:50
PROVIDERS: ADMIT Internal Medicine; ATTEND Internal Medicine
DX: I63.9 Cerebral infarction, unspecified (principal); I69.351 Hemiplegia and hemiparesis following cerebral infarction affecting right dominant side; E11.9 Type 2 diabetes mellitus without complications; E66.9 Obesity, unspecified; F03.90 Unspecified dementia, unspecified severity, without behavioral disturbance, psychotic disturbance, mood disturbance, and anxiety; I11.0 Hypertensive heart disease with heart failure; I50.9 Heart failure, unspecified; R13.19 Other dysphagia; I73.9 Peripheral vascular disease, unspecified; Z85.46 Personal history of malignant neoplasm of prostate; Z88.8 Allergy status to other drugs, medicaments and biological substances; Z90.49 Acquired absence of other specified parts of digestive tract; Z68.36 Body mass index [BMI] 36.0-36.9, adult; I65.22 Occlusion and stenosis of left carotid artery
CPT/HCPCS: 36415; 70450; 70551; 80048; 80061; 82947; 83036; 83735; 84100; 84484; 85027; 85610; 93005; 93308; 93325; 93880; 94250; 94640; 94760; J1815; J7620; 92522; 92526; 92610; 99285-25